=== PATIENT | male | born 1975 | race Caucasian/White ===

== ENCOUNTER 2021-08-20 16:00 | Inpatient (IN) ==
--- NOTE | 2021-08-20 19:45 | XRay Report ---
XR chest 1V portable CLINICAL HISTORY: weak, syncope COMPARISON STUDY: Chest radiograph August 13, 2021. FINDINGS: Lung volumes are normal. There is minimal left basilar opacity. There may be minimal right midlung opacity. There is no pneumothorax or pleural effusion. Cardiac size is normal. Mediastinal co ntours are normal. There is no evidence for pulmonary edema. IMPRESSION: A few subtle bilateral opacities which may reflect an infectious process. Radiographic f ollow-up to ensure resolution is recommended. ACT 112: Negative or not required by law. Electronically signed by: Leroy Magana M.D. 08/20/2021 7:44 PM
[2021-08-20] MEDS ORDERED: SODIUM CHLORIDE 0.9% 1000ML 1,000 ML IV ONE (20:06)
--- NOTE | 2021-08-20 20:09 | Emergency Department Note ---
Impression & Plan 2019 novel coronavirus-infected pneumonia (NCIP), Hypoxia, Acute hypokalemia ED Provider Note NAME: HIRO DURON AGE: 46 SEX: M : 1975 ARRIVES VIA: Walk-In INFORMANT: Patient ED PROVIDER(S): Jamil Fernando DO CHIEF COMPLAINT: Shortness of breath and syncope HPI: Patient is a 46-year-old male Covid positive the week before . He admits to persistent cough and shortness of breath has been worsening. He has not had any fevers for several days. Never lost his taste or smell. Admits to congestion. No belly pain, nausea, vomiting, or diarrhea. He has passed out several times of the past couple days. No other exacerbating or remitting factors. Denies any head or neck pain. ROS: See above HPI for pertinent positives & negatives. A total of 10 systems reviewed and were otherwise negative. PAST MEDICAL HISTORY:See Below PAST SURGICAL HISTORY:See Below FAMILY HISTORY:See Below SOCIAL HISTORY:See Below HOME MEDICATIONS:See Below ALLERGIES:See Below VITALS:See Below PHYSICAL EXAMINATION: GENERAL: Sitting up in bed, alert, ill-appearing, disheveled dyspneic with conversation EYE EXAM: normal conjunctiva. PERRL and EOM's grossly intact. OROPHARYNX: no exudate, no erythema, lips, buccal mucosa, and tongue normal and mucous membranes are moist NECK: supple, no nuchal rigidity, no adenopathy, non-tender LUNGS: Clear to auscultation. Normal chest wall mechanics HEART: no murmurs, S1 normal and S2 normal ABDOMEN: abdomen soft, non-tender, normo-active bowel sounds, no masses, no rebound or guarding. UPPER EXTREMITIES: upper extremities are grossly normal. LOWER EXTREMITIES: No pitting edema. NEURO EXAM: Normal sensorium, cranial nerves II-XII grossly intact, normal speech, no gross weakness of arms, no gross weakness of legs. MEDICAL DECISION MAKING: Patient is a 46-year-old male who presents the ER for shortness of breath cough and congestion with being Covid positive. Patient notes that he is significantly more short of breath now. He is found to be hypoxic at 86% on room air. IV was established blood work was obtained. Labs with mild leukopenia 4000. No significant anemia. BMP with a mild hypokalemia 3. LFTs were slightly up. T bili 1.2. TSH and lipase were normal. He has no belly pain. Chest x-ray with bilateral infiltrates. CT angios shows no PEs. He was given steroids fluids and updated bedside admitted to the hospital for further work-up and he remained on nasal cannula. Triage Nursing notes reviewed. Limited review of prior medical records performed Vital Signs: reviewed and remarkable for hypoxia Differential diagnosis: Differential diagnoses includes but is not limited to pneumonia, bronchitis, COPD/Asthma exacerbation, pneumothorax, pulmonary embolism, congestive heart failure, acute coronary syndrome ER treatment provided: See below Diagnostics interpreted by me: ECG: Sinus rhythm rate [address] wave changes in the inferior leads as well as lateral leads Prolonged QTC at 552 Cardiac Monitoring: An order was placed for continuous cardiac monitoring. The monitor shows a rate of 75 with sinus rhythm. Laboratory studies: As stated above and show below. Imaging studies: CT angios shows bilateral infiltrates Chest x-ray with bilateral infiltrates Consultation(s): Discussed the hospitalist for further evaluation Procedures: none Critical Care: I have personally spent 35 minutes of critical care time in the direct management of this patient. This includes bedside care, interpretation of diagnostic studies, and testing, discussion with consultants, patient, and family members, and other required patient management activities. This 35 min utes is in excess of all separately billable procedures. Past Med/Surg History Medical History Sinusitis Social History Smoking Status: Never smoker Preferred Language: Faroese Feels Safe at Home: Yes Allergies Allergies Allergy/AdvReac Type Severity Reaction Status Date / Time SEASONAL Allergy Intermediate STUFFINESS, Uncoded 08/20/21 20:32 CONGESTION Home Meds Home Medications Medication Instructions Recorded Confirmed albuterol sulfate 90 mcg/actuation 3 inh INHALATION Q6H PRN 08/20/21 08/20/21 aerosol inhaler Previous Rx's Medication Instructions Recorded amoxicillin 875 mg-potassium 1 tab PO BID #20 tab 08/13/21 clavulanate 125 mg tablet (Augmentin) Results & Data (ED) Vital Signs Vital Signs - 24 hr 08/20/21 16:34 08/20/21 20:03 08/20/21 20:04 Temperature 36.8 C Temperature Source Oral Pulse Rate 85 70 Pulse Rate [Radial] 74 Pulse Rate from SpO2 Sensor Respiratory Rate 18 16 16 Respiratory Effort / Characteristics Non-Labored Respiratory Depth Normal Respiratory Pattern Regular Blood Pressure 110/73 Blood Pressure [Left Arm] 122/93 Blood Pressure Mean 85 Blood Pressure Mean [Left Arm] 102 Blood Pressure Position [Left Arm] Lying Pulse Oximetry 91 86 L 94 Oxygen Delivery Method Room Air Room Air Nasal Cannula Oxygen Flow Rate 4 Sepsis Recent Fever Within 48 Hours No Sepsis New/Unexplained Change in Mental Status No Sepsis Action Taken by Nursing No Action Required Oxygen Flow Rate - Titration 4 Pulse Oximetry Post Tiitration 91 08/20/21 21:00 08/20/21 21:35 08/20/21 22:00 Temperature Temperature Source Pulse Rate 79 81 81 Pulse Rate [Radial] Pulse Rate from SpO2 Sensor 80 85 81 Respiratory Rate 17 24 17 Respiratory Effort / Characteristics Respiratory Depth Respiratory Pattern Blood Pressure 131/80 155/86 H 131/84 Blood Pressure [Left Arm] Blood Pressure Mean 97 109 99 Blood Pressure Mean [Left Arm] Blood Pressure Position [Left Arm] Pulse Oximetry 99 94 94 Oxygen Delivery Method Nasal Cannula Nasal Cannula Nasal Cannula Oxygen Flow Rate 4 4 4 Sepsis Recent Fever Within 48 Hours Sepsis New/Unexplained Change in Mental Status Sepsis Action Taken by Nursing Oxygen Flow Rate - Titration Pulse Oximetry Post Tiitration 08/20/21 22:30 08/20/21 23:00 08/20/21 23:30 Temperature Temperature Source Pulse Rate 87 86 89 Pulse Rate [Radial] Pulse Rate from SpO2 Sensor 87 88 90 Respiratory Rate 25 H 21 22 Respiratory Effort / Characteristics Respiratory Depth Respiratory Pattern Blood Pressure 155/78 H 135/79 Blood Pressure [Left Arm] Blood Pressure Mean 103 97 Blood Pressure Mean [Left Arm] Blood Pressure Position [Left Arm] Pulse Oximetry 91 93 94 Oxygen Delivery Method Nasal Cannula Nasal Cannula Nasal Cannula Oxygen Flow Rate 4 4 4 Sepsis Recent Fever Within 48 Hours Sepsis New/Unexplained Change in Mental Status Sepsis Action Taken by Nursing Oxygen Flow Rate - Titration Pulse Oximetry Post Tiitration Laboratory Data Result diagrams: 08/20/21 20:12 08/20/21 20:12 Lab Results 08/20/21 08/20/21 Range/Units 20:12 20:12 WBC 4.56 L (4.8-10.8) K/uL RBC 4.98 (4.7-6.1) M/uL Hgb 17.9 (14.0-18.0) g/dL Hct 49.4 (42-52) % MCV 99.2 (80-100) fL MCH 35.9 H (25-34) pg MCHC 36.2 H (32-36) g/dL RDW Std Deviation 45.4 (36.4-46.3) fL RDW Coeff of Pat 12.4 (11.5-14.5) % Plt Count 180 (130-400) K/uL MPV 9.9 (7.4-10.4) fL Immature Gran % (Auto) 0.2 % Neut % (Auto) 79.2 % Lymph % (Auto) 13.2 % [place] % (Auto) 7.2 % Eos % (Auto) 0.2 % Baso % (Auto) 0.0 % Neut # (Auto) 3.61 (1.4-6.5) K/uL Lymph # (Auto) 0.60 L (1.2-3.4) K/uL [place] # (Auto) 0.33 (0.11-0.59) K/uL Eos # (Auto) 0.01 (0-0.5) K/uL Baso # (Auto) 0.00 (0-0.2) K/uL Immature Gran # (Auto) 0.01 (0.00-0.02) K/uL Sodium 134 L (136-145) mmol/L Potassium 3.0 L (3.5-5.1) mmol/L Chloride 94 L (98-107) mmol/L Carbon Dioxide 31 (21-32) mmol/L Anion Gap 9.0 (3-11) BUN 21 H (7-18) mg/dl Creatinine 1.09 (0.6-1.4) mg/dl Est Cr Clr Drug Dosing 107.0 ml/min Est GFR ( Amer) 95.2 ml/min Est GFR (Non-Af Amer) 82.1 ml/min BUN/Creatinine Ratio 19.4 (10-20) Glucose 104 H (70-99) mg/dl Calcium 8.3 L (8.5-10.1) mg/dl Magnesium 2.6 H (1.8-2.4) mg/dl Total Bilirubin 1.2 H (0.2-1) mg/dl AST 111 H (15-37) U/L ALT 83 H (12-78) Alkaline Phosphatase 86 (45-117) U/L Troponin I < 0.015 (0-0.045) ng/ml Total Protein 7.9 (6.4-8.2) gm/dl Albumin 3.0 L (3.4-5.0) gm/dl Globulin 4.9 H (2.5-4.0) gm/dl Albumin/Globulin Ratio 0.6 L (0.9-2) Lipase 302 (73-393) U/L TSH 1.680 (0.300-4.500) uIu/ml Administered Medications Potassium Chloride 40 meq/ (Sodium Chloride) 1,020 mls @ 100 mls/hr IV .[id number] ONE Stop: 08/21/21 09:11 Last Admin: 08/20/21 23:25 Dose: 100 mls/hr Documented by: [id number] Discontinued Medications Albuterol (Albut/Ipratrop 3mg/0.5mg Neb 3 Ml Vial) 3 ml NEB NOW STA Stop: 08/20/21 22:46 Last Admin: 08/20/21 23:19 Dose: 3 ml Documented by: [id number] Dexamethasone Sodium Phosphate (DexamethasonePf 10 Mg/Ml Vial) 8 mg IV NOW ONE Stop: 08/20/21 22:40 Last Admin: 08/20/21 23:21 Dose: 8 mg Documented by: [id number] Sodium Chloride (Nss 1000ml) 1,000 mls @ 999 mls/hr IV .[id number] ONE Stop: 08/20/21 21:06 Last Infusion: 08/20/21 21:23 Dose: 0 mls/hr Documented by: [id number] Admin: 08/20/21 20:14 Dose: 999 mls/hr Documented by: [id number] Ioversol (Optiray 320 125ml) 120 ml IV ONCE ONE Stop: 08/20/21 21:30 Last Admin: 08/20/21 21:29 Dose: 120 ml Documented by: [id number] Potassium Chloride (Potassium Chloride Crtab 20 Meq Tabcr) 40 meq PO NOW STA Stop: 08/20/21 22:44 Last Admin: 08/20/21 23:21 Dose: 40 meq Documented by: [id number] Imaging Data Radiologist's Impression: Chest X-Ray 08/20/21 18:26 XR chest 1V portable CLINICAL HISTORY: weak, syncope COMPARISON STUDY: Chest radiograph August 13, 2021. FINDINGS: Lung volumes are normal. There is minimal left basilar opacity. There may be minimal right midlung opacity. There is no pneumothorax or pleural effusion. Cardiac size is normal. Mediastinal contours are normal. There is no evidence for pulmonary edema. IMPRESSION: A few subtle bilateral opacities which may reflect an infectious process. Radiographic follow-up to ensure resolution is recommended. ACT 112: Negative or not required by law. Electronically signed by: Leroy Magana M.D. 08/20/2021 7:44 PM Discharge Plan Visit Data Chief Complaint: Syncope Stated Complaint: COVID+, FAINTING, NAUSEA, COUGH, SOB, FEVER ED Provider: Jamil Fernando Discharge Problem: 2019 novel coronavirus-infected pneumonia (NCIP), Hypoxia, Acute hypokalemia Forms Stand Alone Forms: [facility] Prescriptions Prescriptions: No Action albuterol sulfate 90 mcg/actuation HFA aerosol inhaler 3 inh inhalation Q6H PRN (Reason: Shortness Of Breath) RF: 0 amoxicillin-pot clavulanate [Augmentin] 875-125 mg tablet 1 tab PO BID Qty: 20 RF: 0 Referrals Referrals: PCP,NO [Primary Care Provider] -
[2021-08-20 20:29] LABS: Eosinophils # (auto) 0.01 K/uL (0-0.5); Eosinophils % (auto) 0.2 %; Hematocrit (blood only) 49.4 % (42-52); Hemoglobin 17.9 g/dL (14.0-18.0); Immature Granulocytes # (auto) 0.01 K/uL (0.00-0.02); Immature Granulocytes % (auto) 0.2 %; Lymphocytes % (auto) 13.2 %; Mean Corpuscular Hemoglobin 35.9 pg (25-34); Mean Corpuscular Hgb Conc 36.2 g/dL (32-36); Mean Corpuscular Volume 99.2 fL (80-100); Mean Platelet Volume 9.9 fL (7.4-10.4); Monocytes # (auto) 0.33 K/uL (0.11-0.59); Monocytes % (auto) 7.2 %; Neutrophils # (auto) 3.61 K/uL (1.4-6.5); Neutrophils % (auto) 79.2 %; Platelet Count 180 K/uL (130-400); RDW Coefficient of Variation 12.4 % (11.5-14.5); RDW Standard Deviation 45.4 fL (36.4-46.3); Red Blood Count 4.98 M/uL (4.7-6.1); White Blood Count 4.56 K/uL (4.8-10.8)
[2021-08-20 20:48] LABS: Alanine Aminotransferase 83 (12-78); Aspartate Aminotransferase 111 U/L (15-37); BUN Creatinine Ratio 19.4 (10-20); Blood Urea Nitrogen 21 mg/dl (7-18); Calcium 8.3 mg/dl (8.5-10.1); Carbon Dioxide 31 mmol/L (21-32); Chloride 94 mmol/L (98-107); Est GFR (African American) 95.2 ml/min; Est GFR (Non-African American) 82.1 ml/min; Glucose 104 mg/dl (70-99); Lipase 302 U/L (73-393); Magnesium 2.6 mg/dl (1.8-2.4); Sodium 134 mmol/L (136-145)
[2021-08-20 20:58] LABS: Albumin Globulin Ratio 0.6 (0.9-2); Alkaline Phosphatase 86 U/L (45-117); Bilirubin,Total 1.2 mg/dl (0.2-1); Globulin 4.9 gm/dl (2.5-4.0); Total Protein 7.9 gm/dl (6.4-8.2); Troponin I < 0.015 ng/ml (0-0.045)
[2021-08-20] MEDS ORDERED: OPTIRAY 320 125ml IV ONE (21:29)
[2021-08-20] MEDS ORDERED: dexAMETHasone**PF** 10 MG/ML VIAL IV ONE (22:39)
[2021-08-20] MEDS ORDERED: POTASSIUM CHLORIDE CRTAB 20 MEQ TABCR PO STA (22:43)
[2021-08-20] MEDS ORDERED: ALBUT/IPRATROP 3MG/0.5MG NEB 3 ML VIAL NEB STA (22:45)
[2021-08-20] MEDS ORDERED: POTASSIUM CHLORIDE 40 MEQ in SODIUM CHLORIDE 0.9% 1000ML 1,000 ML IV ONE (23:00)
--- NOTE | 2021-08-21 00:18 | History & Physical Report ---
Date of Service August 21, 2021 Assessment & Plan (1) Acute hypoxemic respiratory failure: Plan: Secondary to severe COVID-19 pneumonia Recurrent syncope likely secondary to orthostasis secondary to clinical dehydration Rule out arrhythmia, obstructive cardiac pathology Diarrhea rule out C. difficile, given recent Augmentin course Hypokalemia secondary to diarrhea, poor p.o. intake Abnormal LFTs Medical telemetry Supplemental O2 Decadron and Remdesivir for severe COVID-19 pneumonia. (Patient was counseled regarding potential adverse effects from Remdesivir therapy and provided with patient education sheet. First dose of Remdesivir for now. Check LFTs before subsequent doses administered.) Pulmonary consult if without improvement. Check orthostatic vitals, TTE RE recurrent syncope IVF, replace potassium Stool C. difficile DVT prophylaxis per Lovenox subcu Full code Text document was generated using [employer] voice recognition software. It may contain grammatical or spelling errors. Kindly contact undersigned for clarification of any documentation item in question. History of Present Illness Chief Complaint: Worsening shortness of breath, Covid infection Primary Care Provider: NO PCP History obtained from patient and records. Medical history significant for recurrent sinusitis. 2 weeks ago, patient noted flulike symptoms low-grade fever mild sore throat and sinus congestion. Possible sick contacts at home. Patient has not received COVID-19 vaccination. Patient seen at the ER last week. COVID-19 test was positive. Chest x-ray was normal. O2 sats greater than 95% at the ER. Patient sent home on Augmentin prescription. Worsening shortness of breath at home, chest pain with dry cough symptoms. Poor appetite. Patient had 3 syncopal events at home preceded by lightheadedness on standing up. No tongue biting/urinary incontinence episodes during syncopal events. Diarrhea without unusual abdominal pain complaints. Patient returned to the ER. O2 sats 80s on room air. Patient given Decadron. 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 Allergies Allergy/AdvReac Type Severity Reaction Status Date / Time No Known Drug Allergies Allergy Unknown Unknown Verified 08/21/21 15:00 Home Medications Medication Instructions Recorded Confirmed Type amoxicillin 875 mg-potassium 1 tab PO BID #20 tab 08/13/21 08/20/21 Rx clavulanate 125 mg tablet (Augmentin) albuterol sulfate 90 mcg/actuation 3 inh INHALATION Q6H PRN 08/20/21 08/20/21 History aerosol inhaler Past Med/Surg History Medical History Sinusitis Social History Smoking Status: Never smoker Hx Alcohol Use: Yes Alcohol type: beer and hard liquor Hx Substance Use: No Preferred Language: Bol[place]ian [employer] Required: No Beliefs That Will Affect Care: None Current Living Situation: Spouse and Family Current Living Situation Comment: 2 sons Other Information That Helps Us Care for You: No Feels Safe at Home: Yes Safety Concerns: Feels Safe At This Time Assistive Devices: Glasses and Oxygen - Continuous Review of Systems Review of Systems: As per HPI, all 10 systems reviewed, all other ROS negative Physical Exam Physical Exam: GENERAL: Slightly uncomfortable, pleasant, no respiratory distress SKIN: Normal color, warm HEENT: [place] palpebral conjunctivae, no ptosis, dry buccal mucosa, nasal cannula in place NECK : Supple, no tenderness CHEST : CTA, no tenderness HEART : RRR, no obvious murmurs ABDOMEN: Some distention, nontender EXTREMITIES : No LE swelling/tenderness, no other conspicuous deformities noted NEUROLOGIC : Coherent, no facial asymmetry, no other gross focality Results & Data Results & Data ([facility]) Vital Signs (Past 12 Hours) Vital Signs Temp Pulse Pulse Resp BP BP Pulse Ox 08/20/21 23:30 89 22 94 08/20/21 23:00 86 21 135/79 93 08/20/21 22:30 87 25 H 155/78 H 91 08/20/21 22:00 81 17 131/84 94 08/20/21 21:35 81 24 155/86 H 94 08/20/21 21:00 79 17 131/80 99 08/20/21 20:04 74 16 122/93 94 08/20/21 20:03 70 16 86 L 08/20/21 16:34 36.8 C 85 18 110/73 91 Laboratory Results Laboratory Results WBC 4.56 K/uL (4.8-10.8) L 08/20/21 20:12 RBC 4.98 M/uL (4.7-6.1) 08/20/21 20:12 Hgb 17.9 g/dL (14.0-18.0) 08/20/21 20:12 Hct 49.4 % (42-52) 08/20/21 20:12 MCV 99.2 fL (80-100) 08/20/21 20:12 MCH 35.9 pg (25-34) H 08/20/21 20:12 MCHC 36.2 g/dL (32-36) H 08/20/21 20:12 RDW Std Deviation 45.4 fL (36.4-46.3) 08/20/21 20:12 RDW Coeff of Pat 12.4 % (11.5-14.5) 08/20/21 20:12 Plt Count 180 K/uL (130-400) 08/20/21 20:12 MPV 9.9 fL (7.4-10.4) 08/20/21 20:12 Immature Gran % (Auto) 0.2 % 08/20/21 20:12 Neut % (Auto) 79.2 % 08/20/21 20:12 Lymph % (Auto) 13.2 % 08/20/21 20:12 [place] % (Auto) 7.2 % 08/20/21 20:12 Eos % (Auto) 0.2 % 08/20/21 20:12 Baso % (Auto) 0.0 % 08/20/21 20:12 Neut # (Auto) 3.61 K/uL (1.4-6.5) 08/20/21 20:12 Lymph # (Auto) 0.60 K/uL (1.2-3.4) L 08/20/21 20:12 [place] # (Auto) 0.33 K/uL (0.11-0.59) 08/20/21 20:12 Eos # (Auto) 0.01 K/uL (0-0.5) 08/20/21 20:12 Baso # (Auto) 0.00 K/uL (0-0.2) 08/20/21 20:12 Immature Gran # (Auto) 0.01 K/uL (0.00-0.02) 08/20/21 20:12 Sodium 134 mmol/L (136-145) L 08/20/21 20:12 Potassium 3.0 mmol/L (3.5-5.1) L 08/20/21 20:12 Chloride 94 mmol/L (98-107) L 08/20/21 20:12 Carbon Dioxide 31 mmol/L (21-32) 08/20/21 20:12 Anion Gap 9.0 (3-11) 08/20/21 20:12 BUN 21 mg/dl (7-18) H 08/20/21 20:12 Creatinine 1.09 mg/dl (0.6-1.4) 08/20/21 20:12 Est Cr Clr Drug Dosing 107.0 ml/min 08/20/21 20:12 Est GFR ( Amer) 95.2 ml/min 08/20/21 20:12 Est GFR (Non-Af Amer) 82.1 ml/min 08/20/21 20:12 BUN/Creatinine Ratio 19.4 (10-20) 08/20/21 20:12 Glucose 104 mg/dl (70-99) H 08/20/21 20:12 Calcium 8.3 mg/dl (8.5-10.1) L 08/20/21 20:12 Magnesium 2.6 mg/dl (1.8-2.4) H 08/20/21 20:12 Total Bilirubin 1.2 mg/dl (0.2-1) H 08/20/21 20:12 AST 111 U/L (15-37) H 08/20/21 20:12 ALT 83 (12-78) H 08/20/21 20:12 Alkaline Phosphatase 86 U/L (45-117) 08/20/21 20:12 Troponin I < 0.015 ng/ml (0-0.045) 08/20/21 20:12 Total Protein 7.9 gm/dl (6.4-8.2) 08/20/21 20:12 Albumin 3.0 gm/dl (3.4-5.0) L 08/20/21 20:12 Globulin 4.9 gm/dl (2.5-4.0) H 08/20/21 20:12 Albumin/Globulin Ratio 0.6 (0.9-2) L 08/20/21 20:12 Lipase 302 U/L (73-393) 08/20/21 20:12 TSH 1.680 uIu/ml (0.300-4.500) 08/20/21 20:12 Impressions Chest X-Ray 08/20/21 18:26 XR chest 1V portable CLINICAL HISTORY: weak, syncope COMPARISON STUDY: Chest radiograph August 13, 2021. FINDINGS: Lung volumes are normal. There is minimal left basilar opacity. There may be minimal right midlung opacity. There is no pneumothorax or pleural effusion. Cardiac size is normal. Mediastinal contours are normal. There is no evidence for pulmonary edema. IMPRESSION: A few subtle bilateral opacities which may reflect an infectious process. Radiographic follow-up to ensure resolution is recommended. ACT 112: Negative or not required by law. Electronically signed by: Leroy Magana M.D. 08/20/2021 7:[address] chest initial read: Diffuse bilateral groundglass opacities compatible with multifocal bilateral pneumonitis. Normal cardiac size. Unremarkable mediastinum. Normal aorta. No pulmonaryembolus or aortic dissection. No pleural effusion or pneumothorax. Mild degenerative disease of the spine. Visualized upper abdomen unremarkable. EKG is from interpretation:Rate 70, NSR, normal axis, T wave abnormalities inferior leads
[2021-08-21] MEDS ORDERED: REMDESIVIR 200 MG in SODIUM CHLORIDE 0.9% 210 ML IV STA (00:23)
[2021-08-21] MEDS ORDERED: SODIUM CHLORIDE 0.9% 10ML FLUSH IV SCH (02:50)
[2021-08-21] MEDS ORDERED: XOPENEX/ATROVENT 1.25mg/0.5MG NEB COMBO NEB PRN (02:50)
[2021-08-21] MEDS ORDERED: LEVALBUTEROL 1.25MG/0.5ML NEB INH PRN (02:50)
[2021-08-21] MEDS ORDERED: IPRATROPIUM BROMIDE NEB SOLN 0.02% 2.5 ML VIAL INH PRN (02:50)
[2021-08-21] MEDS ORDERED: PROMETHAZINE HCL 12.5 MG in SODIUM CHLORIDE 0.9% 50 ML IV PRN (02:50)
[2021-08-21] MEDS ORDERED: SODIUM CHLORIDE 0.9% 10ML FLUSH IV ONE (04:00)
[2021-08-21] MEDS ORDERED: dexAMETHasone 6 MG in SYRINGE 0 ML IV ONE (04:40)
[2021-08-21 05:11] LABS: Basophils # (auto) 0.01 K/uL (0-0.2); Basophils % (auto) 0.4 %; Hematocrit (blood only) 43.1 % (42-52); Hemoglobin 15.3 g/dL (14.0-18.0); Immature Granulocytes # (auto) 0.01 K/uL (0.00-0.02); Immature Granulocytes % (auto) 0.4 %; Lymphocytes # (auto) 0.25 K/uL (1.2-3.4); Lymphocytes % (auto) 10.6 %; Mean Corpuscular Hemoglobin 35.4 pg (25-34); Mean Corpuscular Hgb Conc 35.5 g/dL (32-36); Mean Corpuscular Volume 99.8 fL (80-100); Mean Platelet Volume 9.7 fL (7.4-10.4); Monocytes # (auto) 0.09 K/uL (0.11-0.59); Monocytes % (auto) 3.8 %; Neutrophils # (auto) 1.99 K/uL (1.4-6.5); Neutrophils % (auto) 84.8 %; Platelet Count 152 K/uL (130-400); RDW Coefficient of Variation 12.5 % (11.5-14.5); RDW Standard Deviation 45.8 fL (36.4-46.3); Red Blood Count 4.32 M/uL (4.7-6.1); White Blood Count 2.35 K/uL (4.8-10.8)
[2021-08-21 05:15] LABS: Base Excess ABG 1.4 mEq/L (-9-1.8); HCO3 ABG 25 mmol/L (19-24); Oxygen Saturation ABG 89.4 % (90-95); PCO2 ABG 36 mmHg (35-46); PO2 ABG 56 mmHg (80-95); pH ABG 7.46 (7.35-7.45)
[2021-08-21 05:20] LABS: Allen Test Pos (Pos)
[2021-08-21 05:44] LABS: Albumin Level 2.3 gm/dl (3.4-5.0); BUN Creatinine Ratio 21.8 (10-20); Bilirubin,Total 0.8 mg/dl (0.2-1); C Reactive Protein 5.5 mg/dl (0-0.29); Calcium 7.8 mg/dl (8.5-10.1); Creatinine Clr Calc Pharmacy 155.6 ml/min; Est GFR (African American) 129.3 ml/min; Est GFR (Non-African American) 111.6 ml/min; Total Protein 6.3 gm/dl (6.4-8.2)
--- NOTE | 2021-08-21 07:34 | CT Scan Report ---
CT angio chest PE protocol CLINICAL HISTORY: Shortness of breath. Covid positive. Evaluate for pulmonary embolus COMPARISON STUDY: Portable chest from 08/21/2021 CT DOSE: 464.55 mGy.cm TECHNIQUE: CT Angio of the chest was performed.followed by image post processing with coronal, and s agittal MIP reformats. Contrast Volume: Optiray 320, 120 ml FINDINGS: Vasculature: There is homogeneous perfusion of the pulmonary vasculature bilaterally. No intraluminal filling defects or evidence for pulmonary embolus is seen. Airway: The airway is clear. No endobronchial lesion is identified. Lungs: Extensive groundglass opacities are present throughout both lungs characteristic of a viral ty pe pneumonitis and Covid 19 pneumonia. The lungs are otherwise clear of confluent alveolar opacities, air bronchograms or pulmonary nodules. Pleura: There is no evidence for pleural effusion. There is no evidence for pneumothorax. Mediastinum: There is no evidence for pathologic adenopathy. The heart size is within normal limits. The thoracic aorta is within normal limits. There is no evidence for pericardial effusion. Upper abdomen:The adrenal glands are normal bilaterally. Osseous structures: There is no acute osseous pathology. Impression: 1. No CTA evidence for pulmonary embolus. 2. Extensive groundglass opacities are present throughout both lungs characteristic of a viral type p neumonitis and Covid 19 pneumonia. ACT 112: Negative or not required by law. Electronically signed by: Jose R Banks M.D. 08/21/2021 7:32 AM
--- NOTE | 2021-08-21 07:45 | XRay Report ---
XR chest 1V portable CLINICAL HISTORY: low o2 COMPARISON STUDY: Chest radiograph and chest CT August 20, 2021. FINDINGS: Lung volumes are normal. There is no pneumothorax or pleural effusion. Multifocal bilateral airspace opacities have progressed since chest radiograph of August 20, 2021. Cardiac size is fern l. Mediastinal contours are unremarkable. IMPRESSION: Progression of bilateral airspace opacities consistent with viral pneumonia. ACT 112: Negative or not required by law. Electronically signed by: Leroy Magana M.D. 08/21/2021 7:43 AM
[2021-08-21 07:51] LABS: Appearance Urine Clear (Clear); Bilirubin Urine Negative (Negative); Blood Urine Negative (Negative); Color Urine Dark Yellow; Glucose Urine UA Negative (Negative); Ketones Urine Negative (Negative); Leukocyte Esterase Urine Negative (Negative); Nitrite Urine Negative (Negative); Protein Urine Negative (Negative); Specific Gravity Urine 1.026 (1.000-1.030); Urobilinogen Urine Positive (Negative); pH Urine 6.5 (4.5-7.5)
[2021-08-21 08:22] LABS: Potassium 3.9 mmol/L (3.5-5.1)
[2021-08-21] MEDS ORDERED: dexAMETHasone 6 MG in SYRINGE 0 ML IV SCH (09:00)
[2021-08-21] MEDS: ENOXAPARIN INJ 40 MG/0.4 ML SYR SQ SCH (09:28)
--- NOTE | 2021-08-21 14:55 | Hospitalist Progress Note ---
Date of Service August 21, 2021 Assessment & Plan (1) Acute hypoxemic respiratory failure: Plan: #. COVID pneumonia #. Acute hypoxic respiratory failure -secondary to above #. Slightly abnormal LFT -continue to monitor very closely for the duration of remdesivir. Vaccine status/month: Not vaccinated; signs and symptoms: Since 08/09; tested positive for Covid: 08/13 Admitting pro-Jessee: add test to am sample Admitting imaging: CTA chest suggestive of viral pneumonia, no evidence of PE. Clinically patient doing same as yesterday per him, requiring high oxygen, no chest pain or subjective shortness of breath but gets SOB with minimal exertion Encourage every hour incentive spirometer/flutter valve/self proning as able Tessalon Perles and Mucinex for cough BNP: Add to a.m. sample; strict I's and O's; as needed IV Lasix; monitor BMP Admitting echo: EF 60 to 65% with normal LV wall motion and LV function. Monitor LFT daily when on remdesivir; sliding scale and glycemic pharmacy if needed when on steroid. Continue with dexamethasone 08/21 and remdesivir 08/21 -closely monitor LFT #. Diarrhea #. Electrolyte abnormalities -monitor as needed and replete as appropriate. Patient reports not having diarrhea since yesterday morning Has had diarrhea prior to that Likely secondary to recent antibiotic use versus from Covid versus other etiology C. difficile has been sent, but patient has not had any bowel movement lately. Continue to monitor. #. Recurrent syncope Likely secondary to orthostasis secondary to clinical dehydration versus hypoxic episodes from Covid Continue telemetry, admitting echo donesee above Get orthostatic vitals, monitor electrolytes. Continue telemetry. DVT prophylaxis per Lovenox subcu Full code Text document was generated using [employer] voice recognition software. It may contain grammatical or spelling errors. Kindly contact undersigned for clarification of any documentation item in qu estion. Admission and Anticipated Discharge Date Admission Date: August 21, 2021 Subjective Patient was lying in bed, on 45 L high flow nasal cannula, NAD, coughingwet in nature but with no mucus production. Patient denies any new acute events overnight. Patient feels same same as yesterday, reports no diarrhea since yesterday morning, coughing occasionally, no chest pain or palpitation, no acute changes in bladder habit, no belly pain, no other review of symptoms. Physical Exam Physical Exam: GENERAL: Alert and oriented x3. NAD, on 45 L HFNC HEENT: No pallor, no icterus. Pupils equal, round and reactive to light. Oral mucosa moist. NECK: No JVD, no neck masses. HEART: S1 and S2 heard. Regular rate and rhythm. No murmur, no gallop. RESPIRATORY SYSTEM: Normal AP diameter. No accessory muscle use. No wheezing, b/l occasional crackles. Wet cough ABDOMEN: Soft, bowel sounds present, nontender, no distention. CENTRAL NERVOUS SYSTEM: No facial droop. Speech is clear. Obeys simple commands. Moves extremities. EXTREMITIES: No edema, no erythema seen. Results & Data Results & Data ([facility]) Vital Signs (Past 12 Hours) Vital Signs Temp Pulse Pulse Resp BP Pulse Ox Pulse Ox 08/21/21 12:30 58 L 12 113/62 91 08/21/21 12:00 54 L 22 98 08/21/21 11:30 56 L 16 93 08/21/21 11:12 66 22 91 08/21/21 11:00 63 17 08/21/21 10:30 58 L 24 119/69 97 08/21/21 09:30 73 25 H 126/71 93 08/21/21 09:00 63 26 H 118/71 97 08/21/21 08:30 91 H 16 116/71 94 08/21/21 08:00 81 19 135/78 92 08/21/21 07:36 37 C 74 15 113/78 99 08/21/21 07:23 67 16 92 08/21/21 07:00 58 L 17 138/84 98 08/21/21 06:30 72 20 122/65 98 08/21/21 06:00 72 12 129/70 99 08/21/21 05:44 73 20 93 08/21/21 05:30 69 12 113/69 97 08/21/21 05:16 90 08/21/21 05:00 69 23 114/70 88 L 08/21/21 04:30 73 21 120/64 86 L 08/21/21 04:00 80 16 91 08/21/21 03:51 77 24 92 08/21/21 03:00 70 23 111/72 95
--- NOTE | 2021-08-21 15:53 | Electrocardiogram Report ---
Test Reason : Blood Pressure : / mmHG Vent. Rate : 071 BPM Atrial Rate : 071 BPM P-R Int : 132 ms QRS Dur : 086 ms QT Int : 508 ms P-R-T Axes : 052 031 055 degrees QTc Int : 552 ms Normal sinus rhythm Prolonged QT Abnormal ECG No previous ECGs available Confirmed by Mike Stone ([id number]) on 08/21/2021 3:53:22 PM Referred By: REFERRED SELF Confirmed By:Mike Stone
[2021-08-21] MEDS: ACETAMINOPHEN 325 MG TAB PO PRN (21:50)
[2021-08-21] MEDS: BENZONATATE 100 MG CAPSULE PO SCH (21:51)
[2021-08-21] MEDS: guaiFENesin 600 MG TABCR PO SCH (21:51)
[2021-08-22 06:37] LABS: Hematocrit (blood only) 42.3 % (42-52); Hemoglobin 15.1 g/dL (14.0-18.0); Mean Corpuscular Hemoglobin 36.3 pg (25-34); Mean Corpuscular Hgb Conc 35.7 g/dL (32-36); Mean Corpuscular Volume 101.7 fL (80-100); Mean Platelet Volume 9.7 fL (7.4-10.4); Platelet Count 181 K/uL (130-400); RDW Coefficient of Variation 12.6 % (11.5-14.5); RDW Standard Deviation 46.7 fL (36.4-46.3); Red Blood Count 4.16 M/uL (4.7-6.1); White Blood Count 8.17 K/uL (4.8-10.8)
[2021-08-22 07:13] LABS: Albumin Level 2.2 gm/dl (3.4-5.0); Calcium 8.3 mg/dl (8.5-10.1); Creatinine Clr Calc Pharmacy 142.2 ml/min; Est GFR (African American) 124.6 ml/min; Est GFR (Non-African American) 107.5 ml/min; Magnesium 2.8 mg/dl (1.8-2.4); Potassium 3.6 mmol/L (3.5-5.1)
[2021-08-22 07:16] LABS: Albumin Globulin Ratio 0.6 (0.9-2); Bilirubin,Total 0.8 mg/dl (0.2-1); Globulin 3.9 gm/dl (2.5-4.0); Phosphorus 3.5 mg/dl (2.5-4.9); Total Protein 6.1 gm/dl (6.4-8.2)
[2021-08-22] MEDS: BENZONATATE 100 MG CAPSULE PO SCH ×3 (09:45→20:38)
[2021-08-22] MEDS: guaiFENesin 600 MG TABCR PO SCH ×2 (09:45→20:38)
[2021-08-22] MEDS: ENOXAPARIN INJ 40 MG/0.4 ML SYR SQ SCH (09:45)
[2021-08-22] MEDS: dexAMETHasone 6 MG in SYRINGE 0 ML IV SCH (09:45)
[2021-08-22] MEDS: REMDESIVIR 100 MG in SODIUM CHLORIDE 0.9% 230 ML IV SCH (11:45)
[2021-08-22] MEDS: SODIUM CHLORIDE 0.9% 10ML FLUSH IV SCH (12:56)
[2021-08-22] MEDS ORDERED: POTASSIUM CHLORIDE CRTAB 20 MEQ TABCR PO STA (16:13)
[2021-08-22] MEDS ORDERED: FUROSEMIDE INJ 20 MG/2 ML VIAL IV ONE (16:13)
--- NOTE | 2021-08-22 16:19 | Hospitalist Progress Note ---
Date of Service August 22, 2021 Assessment & Plan (1) Acute hypoxemic respiratory failure: (2) 2019 novel coronavirus-infected pneumonia (NCIP): Plan: #. COVID pneumonia #. Acute hypoxic respiratory failure-secondary to above #. Slightly abnormal LFT-continue to monitor very closely for the duration of remdesivir. Vaccine status/month: Not vaccinated; signs and symptoms: Since 08/09; tested positive for Covid: 08/13 Admitting pro-Jessee: 0.38 Admitting imaging: CTA chest suggestive of viral pneumonia, no evidence of PE. Clinically patient doing same as yesterday per him, requiring high oxygen, no chest pain or subjective shortness of breath but gets SOB with minimal exertion Encourage every hour incentive spirometer/flutter valve/self proning as able Tessalon Perles and Mucinex for cough BNP: 53; strict I's and O's; as needed IV Lasix; monitor BMP. A dose of lasix with KCL supplement today. Admitting echo: EF 60 to 65% with normal LV wall motion and LV function. Monitor LFT daily when on remdesivir; sliding scale and glycemic pharmacy if needed when on steroid. Continue with dexamethasone 08/21 and remdesivir 08/21 -closely monitor LFT #. Diarrhea #. Electrolyte abnormalities -monitor as needed and replete as appropriate. 08/21 C. diff negative ( recent antibiotic as OP) Patient reports BM still diarrheal, no blood noted. Likely secondary Covid versus other etiology Continue to monitor. #. Recurrent syncope Likely secondary to orthostasis secondary to clinical dehydration versus hypoxic episodes from Covid Continue telemetry, admitting echo donesee above; Ortho vitals negative on 08/21. Monitor electrolytes. Continue telemetry. DVT prophylaxis per Lovenox subcu Full code Text document was generated using [employer] voice recognition software. It may contain grammatical or spelling errors. Kindly contact undersigned for clarification of any documentation item in question. Admission and Anticipated Discharge Date Admission Date: August 21, 2021 Subjective Patient was lying in bed, on 40 L high flow nasal cannula, NAD, coughingwet in nature but with no mucus production. Patient denies any new acute events overnight. Patient feels same same as yesterday, reports diarrheal BM, coughing occasionally, no chest pain or palpitation, no acute changes in bladder habit, no belly pain, no other review of symptoms. Physical Exam Physical Exam: GENERAL: Alert and oriented x3. NAD, on 40 L HFNC HEENT: No pallor, no icterus. Pupils equal, round and reactive to light. Oral mucosa moist. NECK: No JVD, no neck masses. HEART: S1 and S2 heard. Regular rate and rhythm. No murmur, no gallop. RESPIRATORY SYSTEM: Normal AP diameter. No accessory muscle use. No wheezing, b/l crackles. Wet cough ABDOMEN: Soft, bowel sounds present, nontender, no distention. CENTRAL NERVOUS SYSTEM: No facial droop. Speech is clear. Obeys simple commands. Moves extremities. EXTREMITIES: No edema, no erythema seen. Results & Data Results & Data ([facility]) Vital Signs (Past 12 Hours) Vital Signs Temp Pulse Pulse Resp BP Pulse Ox 08/22/21 15:27 36.8 C 53 L 22 102/66 96 08/22/21 14:09 77 18 98 08/22/21 11:53 36.5 C 73 20 102/68 95 08/22/21 11:12 70 22 89 L 08/22/21 07:55 36.9 C 59 L 18 110/70 100 08/22/21 07:40 60 18 95 08/22/21 07:29 56 L
[2021-08-23] MEDS: ACETAMINOPHEN 325 MG TAB PO PRN (00:22)
[2021-08-23 08:25] LABS: Albumin Level 2.2 gm/dl (3.4-5.0); BUN Creatinine Ratio 32.4 (10-20); Creatinine Clr Calc Pharmacy 137.8 ml/min; Est GFR (African American) 122.8 ml/min; Potassium 3.9 mmol/L (3.5-5.1)
[2021-08-23 08:28] LABS: Albumin Globulin Ratio 0.6 (0.9-2); Bilirubin,Total 1.1 mg/dl (0.2-1); Globulin 3.9 gm/dl (2.5-4.0); Total Protein 6.1 gm/dl (6.4-8.2)
[2021-08-23] MEDS: BENZONATATE 100 MG CAPSULE PO SCH ×3 (08:45→20:34)
[2021-08-23] MEDS: guaiFENesin 600 MG TABCR PO SCH ×2 (08:46→20:32)
[2021-08-23] MEDS: dexAMETHasone 6 MG in SYRINGE 0 ML IV SCH (08:46)
[2021-08-23] MEDS: ENOXAPARIN INJ 40 MG/0.4 ML SYR SQ SCH (08:46)
[2021-08-23] MEDS: REMDESIVIR 100 MG in SODIUM CHLORIDE 0.9% 230 ML IV SCH (12:10)
[2021-08-23] MEDS: SODIUM CHLORIDE 0.9% 10ML FLUSH IV SCH (12:11)
--- NOTE | 2021-08-23 18:58 | Hospitalist Progress Note ---
Date of Service August 23, 2021 Assessment & Plan (1) Acute hypoxemic respiratory failure: (2) 2019 novel coronavirus-infected pneumonia (NCIP): Plan: #. COVID pneumonia #. Acute hypoxic respiratory failure-secondary to above #. Slightly abnormal LFT-continue to monitor very closely for the duration of remdesivir. Vaccine status/month: Not vaccinated; signs and symptoms: Since 08/09; tested positive for Covid: 08/13 Admitting pro-Jessee: 0.38 Admitting imaging: CTA chest suggestive of viral pneumonia, no evidence of PE. Clinically patient doing same as yesterday per him, requiring high oxygen, no chest pain or subjective shortness of breath but gets SOB with minimal exertion Encourage every hour incentive spirometer/flutter valve/self proning as able Tessalon Perles and Mucinex for cough BNP: 53; strict I's and O's; as needed IV Lasix; monitor BMP. A dose of lasix tomorrow. Admitting echo: EF 60 to 65% with normal LV wall motion and LV function. Monitor LFT daily when on remdesivir; sliding scale and glycemic pharmacy if needed when on steroid. Continue with dexamethasone 08/21 and remdesivir 08/21 -closely monitor LFT #. Diarrhea #. Electrolyte abnormalities -monitor as needed and replete as appropriate. 08/21 C. diff negative ( recent antibiotic as OP) Patient reports improving diarrheal movements. Likely secondary Covid versus other etiology Continue to monitor. #. Recurrent syncope Likely secondary to orthostasis secondary to clinical dehydration versus hypoxic episodes from Covid Continue telemetry, admitting echo donesee above; Ortho vitals negative on 08/21. Monitor electrolytes. Continue telemetry. DVT prophylaxis per Lovenox subcu Full code Text document was generated using [employer] voice recognition software. It may contain grammatical or spelling errors. Kindly contact undersigned for clarification of any documentation item in question. Admission and Anticipated Discharge Date Admission Date: August 21, 2021 Subjective Patient was lying in bed, on 35 L high flow nasal cannula, NAD, reports improving cough and improving diarrhea. Still reports shortness of breath with movement. Patient feels slightly better, no chest pain or palpitation, no acute changes in bladder habit, no belly pain, no other review of symptoms. Physical Exam Physical Exam: GENERAL: Alert and oriented x3. NAD, on 35 L HFNC HEENT: No pallor, no icterus. Pupils equal, round and reactive to light. Oral mucosa moist. NECK: No JVD, no neck masses. HEART: S1 and S2 heard. Regular rate and rhythm. No murmur, no gallop. RESPIRATORY SYSTEM: Normal AP diameter. No accessory muscle use. No wheezing, b/l crackles. Wet cough. Decreased breath sounds. ABDOMEN: Soft, bowel sounds present, nontender, no distention. CENTRAL NERVOUS SYSTEM: No facial droop. Speech is clear. Obeys simple commands. Moves extremities. EXTREMITIES: No edema, no erythema seen. Results & Data Results & Data ([facility]) Vital Signs (Past 12 Hours) Vital Signs Temp Pulse Pulse Resp BP Pulse Ox 08/23/21 15:49 36.6 C 53 L 18 97/58 L 95 08/23/21 15:32 52 L 20 94 08/23/21 15:00 50 L 08/23/21 11:52 36.4 C L 81 24 95/56 L 94 08/23/21 11:15 63 16 94 08/23/21 07:52 36.8 C 50 L 20 103/69 90 08/23/21 07:51 47 L 08/23/21 07:46 51 L 18 98
[2021-08-24] MEDS ORDERED: FUROSEMIDE 40 MG/4 ML VIAL IV ONE (07:00)
[2021-08-24 07:35] LABS: Albumin Level 2.2 gm/dl (3.4-5.0); BUN Creatinine Ratio 28.4 (10-20); Calcium 8.1 mg/dl (8.5-10.1); Creatinine Clr Calc Pharmacy 134.8 ml/min; Est GFR (African American) 122.2 ml/min; Est GFR (Non-African American) 105.5 ml/min; Potassium 4.1 mmol/L (3.5-5.1)
[2021-08-24 07:37] LABS: Albumin Globulin Ratio 0.6 (0.9-2); Bilirubin,Total 1.2 mg/dl (0.2-1); Globulin 3.9 gm/dl (2.5-4.0); Total Protein 6.1 gm/dl (6.4-8.2)
[2021-08-24] MEDS: dexAMETHasone 6 MG in SYRINGE 0 ML IV SCH (10:07)
[2021-08-24] MEDS: ENOXAPARIN INJ 40 MG/0.4 ML SYR SQ SCH (10:07)
[2021-08-24] MEDS: BENZONATATE 100 MG CAPSULE PO SCH ×3 (10:08→21:35)
[2021-08-24] MEDS: guaiFENesin 600 MG TABCR PO SCH ×2 (10:08→21:35)
--- NOTE | 2021-08-24 10:55 | Hospitalist Progress Note ---
Date of Service August 24, 2021 Assessment & Plan (1) Acute hypoxemic respiratory failure: (2) 2019 novel coronavirus-infected pneumonia (NCIP): Plan: #. COVID pneumonia #. Acute hypoxic respiratory failure-secondary to above #. Slightly abnormal LFT-continue to monitor very closely for the duration of remdesivir. Vaccine status/month: Not vaccinated; signs and symptoms: Since 08/09; tested positive for Covid: 08/13 Admitting pro-Jessee: 0.38, f/u procal 08/24 negative Admitting imaging: CTA chest suggestive of viral pneumonia, no evidence of PE. Clinically patient doing same as yesterday per him, requiring high oxygen, no chest pain or subjective shortness of breath but gets SOB with minimal exertion Encourage every hour incentive spirometer/flutter valve/self proning as able Tessalon Perles and Mucinex for cough BNP: 53; strict I's and O's; as needed IV Lasix; monitor BMP. Admitting echo: EF 60 to 65% with normal LV wall motion and LV function. Monitor LFT daily when on remdesivir; sliding scale and glycemic pharmacy if needed when on steroid. Continue with dexamethasone 08/21 and remdesivir 08/21 -closely monitor LFT #. Diarrhea #. Electrolyte abnormalities -monitor as needed and replete as appropriate. 08/21 C. diff negative ( recent antibiotic as OP) Patient reports improving diarrheal movements. Likely secondary Covid versus other etiology Continue to monitor. #. Recurrent syncope Likely secondary to orthostasis secondary to clinical dehydration versus hypoxic episodes from Covid Continue telemetry, admitting echo donesee above; Ortho vitals negative on 08/21. Monitor electrolytes. Continue telemetry. DVT prophylaxis per Lovenox subcu Full code Text document was generated using [employer] voice recognition software. It may contain grammatical or spelling errors. Kindly contact undersigned for clarification of any documentation item in que stion. Admission and Anticipated Discharge Date Admission Date: August 21, 2021 Subjective Patient was sitting up in bed, on 35 L high flow nasal cannula, NAD, reports improving cough and improving diarrhea. Still reports shortness of breath with minimal exertion requiring 60 L overnight and dropping to 74% on 35L in AM. will place roy, call respiratory, will initiate CPAP. Patient feels ok, no chest pain or palpitation, no acute changes in bladder habit, no belly pain, no other review of symptoms. Physical Exam Physical Exam: GENERAL: Alert and oriented x3. NAD, on 35 L HFNC HEENT: No pallor, no icterus. Pupils equal, round and reactive to light. Oral mucosa moist. NECK: No JVD, no neck masses. HEART: S1 and S2 heard. Regular rate and rhythm. No murmur, no gallop. RESPIRATORY SYSTEM: Normal AP diameter. No accessory muscle use. No wheezing, b/l crackles. Wet cough. Decreased breath sounds. ABDOMEN: Soft, bowel sounds present, nontender, no distention. CENTRAL NERVOUS SYSTEM: No facial droop. Speech is clear. Obeys simple commands. Moves extremities. EXTREMITIES: No edema, no erythema seen. Results & Data Results & Data ([facility]) Vital Signs (Past 12 Hours) Vital Signs Temp Pulse Pulse Resp BP BP Pulse Ox 08/24/21 08:13 36.5 C 61 24 102/63 90 08/24/21 08:10 65 20 91 08/24/21 04:06 36.6 C 53 L 18 106/52 L 95 08/24/21 03:00 20 94 08/23/21 23:32 61 08/23/21 23:14 36.6 C 55 L 18 119/78 90
[2021-08-24 12:03] LABS: D Dimer 970 ug/L FEU (0-500)
[2021-08-24] MEDS: REMDESIVIR 100 MG in SODIUM CHLORIDE 0.9% 230 ML IV SCH (13:12)
[2021-08-24] MEDS: SODIUM CHLORIDE 0.9% 10ML FLUSH IV SCH (13:14)
[2021-08-25 06:53] LABS: Albumin Level 2.3 gm/dl (3.4-5.0); BUN Creatinine Ratio 32.8 (10-20); Calcium 8.3 mg/dl (8.5-10.1); Creatinine Clr Calc Pharmacy 125.3 ml/min; Est GFR (African American) 122.8 ml/min; Potassium 4.1 mmol/L (3.5-5.1)
[2021-08-25 06:55] LABS: Albumin Globulin Ratio 0.6 (0.9-2); Bilirubin,Total 1.2 mg/dl (0.2-1); Globulin 3.8 gm/dl (2.5-4.0); Total Protein 6.1 gm/dl (6.4-8.2)
[2021-08-25] MEDS: dexAMETHasone 6 MG in SYRINGE 0 ML IV SCH (08:13)
[2021-08-25] MEDS: ENOXAPARIN INJ 40 MG/0.4 ML SYR SQ SCH (10:53)
[2021-08-25] MEDS: guaiFENesin 600 MG TABCR PO SCH ×2 (10:53→20:09)
[2021-08-25] MEDS: BENZONATATE 100 MG CAPSULE PO SCH ×3 (10:53→20:09)
[2021-08-25] MEDS: REMDESIVIR 100 MG in SODIUM CHLORIDE 0.9% 230 ML IV SCH (12:09)
[2021-08-25] MEDS: SODIUM CHLORIDE 0.9% 10ML FLUSH IV SCH (12:09)
--- NOTE | 2021-08-25 16:50 | Hospitalist Progress Note ---
Date of Service August 25, 2021 Assessment & Plan (1) Acute hypoxemic respiratory failure: (2) 2019 novel coronavirus-infected pneumonia (NCIP): Plan: #. COVID pneumonia #. Acute hypoxic respiratory failure-secondary to above #. Slightly abnormal LFT-continue to monitor very closely for the duration of remdesivir. Vaccine status/month: Not vaccinated; signs and symptoms: Since 08/09; tested positive for Covid: 08/13 Admitting pro-Jessee: 0.38, f/u procal 08/24 negative Admitting imaging: CTA chest suggestive of viral pneumonia, no evidence of PE. Encourage every hour incentive spirometer/flutter valve/self proning as able Tessalon Perles and Mucinex for cough BNP: 53; strict I's and O's; as needed IV Lasix; monitor BMP. Admitting echo: EF 60 to 65% with normal LV wall motion and LV function. Monitor LFT daily when on remdesivir; sliding scale and glycemic pharmacy if needed when on steroid. Continue with dexamethasone 08/21 and remdesivir 08/21 -closely monitor LFT Clinically a little better but still requiring high flow oxygen at 40 L with 35% FiO2 to maintain saturation Has a total of negative balance about 4000 mL and will not give any more Lasix today Continue with current management #. Diarrhea #. Electrolyte abnormalities -monitor as needed and replete as appropriate. 08/21 C. diff negative ( recent antibiotic as OP) Patient reports improving diarrheal movements. Likely secondary Covid versus other etiology Continue to monitor. Denies any more diarrhea #. Recurrent syncope Likely secondary to orthostasis secondary to clinical dehydration versus hypoxic episodes from Covid Continue telemetry, admitting echo donesee above; Ortho vitals negative on 08/21. Monitor electrolytes. Continue telemetry We will get PT and OT evaluation when appropriate. DVT prophylaxis per Lovenox subcu Full code Admission and Anticipated Discharge Date Admission Date: August 21, 2021 Subjective 08/25/2021 The patient was seen and examined in telemetry unit and in the Covid room He has been feeling a little better but still requiring about 40 L of oxygen at 35% to maintain saturation Has cough without any pain Review of Systems Review of Systems: All systems reviewed and are unremarkable except as noted below Respiratory: Has shortness of breath and cough Physical Exam Physical Exam: Lying in bed comfortably Constitutional: + ill appearing and average body habitus Eyes: PERRL, conjunctivae normal, anicteric sclerae ENMT: external ear and nose normal, oropharynx normal Respiratory: + respiratory distress (Mild to moderate respiratory distress at rest) Auscultation: + diminished lung sounds and + crackles (At the bases) Cardiovascular: Rate/Rhythm: regular rate and regular rhythm; not tachycardic Heart Sounds: normal S1 and normal S2; no murmur Extremities: no edema Gastrointestinal (Abdomen): Inspection/Auscultation: normal bowel sounds; abdomen not distended Percussion/Palpation: abdomen soft; abdomen nontender Musculoskeletal: No acute arthritis in any joint Neurologic: Alert, awake and oriented x3 Lymphatic: no cervical or axillary lymphadenopathy Results & Data Results & Data ([facility]) Vital Signs (Past 12 Hours) Vital Signs Temp Pulse Pulse Pulse Resp BP Pulse Ox 08/25/21 15:59 36.8 C 50 L 18 116/65 95 08/25/21 14:20 70 18 89 L 08/25/21 12:05 36.8 C 77 18 118/68 87 L 08/25/21 10:56 76 26 H 90 08/25/21 07:24 36.6 C 47 L 20 96/47 L 92 08/25/21 07:14 49 L 08/25/21 06:22 77 24 91 Laboratory Results [facility] 08/25/21 05:58 Sodium 137 Potassium 4.1 Chloride 106 Carbon Dioxide 25 BUN 28 H Creatinine 0.85 Glucose 99 Calcium 8.3 L Liver Function 08/25/21 Range/Units 05:58 Total Bilirubin 1.2 H (0.2-1) mg/dl AST 34 (15-37) U/L ALT 43 (12-78) Alkaline Phosphatase 61 (45-117) U/L Albumin 2.3 L (3.4-5.0) gm/dl Medications Administered Current Inpatient Medications Acetaminophen (Acetaminophen 325 Mg Tab) 325 mg PO Q6H PRN PRN Reason: Mild Pain Stop: 09/20/21 02:49 Last Admin: 08/23/21 00:22 Dose: 325 mg Documented by: Benzonatate (Benzonatate 100 Mg Capsule) 100 mg PO TID MILA Stop: 09/20/21 20:59 Last Admin: 08/25/21 13:13 Dose: 100 mg Documented by: Enoxaparin Sodium (Enoxaparin Inj 40 Mg/0.4 Ml Syr) 40 mg SQ QAM [facility] Stop: 09/20/21 08:59 Last Admin: 08/25/21 10:53 Dose: 40 mg Documented by: Guaifenesin (Guaifenesin 600 Mg Tabcr) 1,200 mg PO Q12 [facility] Stop: 09/20/21 20:59 Last Admin: 08/25/21 10:53 Dose: 1,200 mg Documented by: Promethazine HCl 12.5 mg/ (Sodium Chloride) 50.5 mls @ 202 mls/hr IV Q6H PRN PRN Reason: Nausea And Vomiting Stop: 09/20/21 02:49 Dexamethasone 6 mg/ Syringe 1.5 mls @ 1 mls/min IV DAILY [facility] Stop: 09/21/21 08:59 Last Admin: 08/25/21 08:13 Dose: 1 mls/min Documented by: Ipratropium [place] (Ipratropium [place] Neb Soln 0.02% 2.5 Ml Vial) 0.5 mg INH Q4R PRN PRN Reason: Shortness Of Breath Or Wheezing Stop: 09/20/21 02:49 Last Admin: 08/21/21 03:51 Dose: 0.5 mg Documented by: Levalbuterol HCl (Levalbuterol 1.25mg/0.5ml Neb) 1.25 mg INH Q4R PRN PRN Reason: Shortness Of Breath Or Wheezing Stop: 09/20/21 02:49 Last Admin: 08/21/21 03:50 Dose: 1.25 mg Documented by:
[2021-08-25] MEDS: hydrOXYzine HCl 25 MG TAB PO PRN (22:14)
[2021-08-26] MEDS: dexAMETHasone 6 MG in SYRINGE 0 ML IV SCH (08:34)
[2021-08-26] MEDS: BENZONATATE 100 MG CAPSULE PO SCH ×3 (08:34→19:54)
[2021-08-26] MEDS: guaiFENesin 600 MG TABCR PO SCH ×2 (08:35→19:43)
[2021-08-26] MEDS: ENOXAPARIN INJ 40 MG/0.4 ML SYR SQ SCH (08:35)
--- NOTE | 2021-08-26 15:02 | Hospitalist Progress Note ---
Date of Service August 26, 2021 Assessment & Plan (1) Acute hypoxemic respiratory failure: (2) 2019 novel coronavirus-infected pneumonia (NCIP): Plan: #. COVID pneumonia #. Acute hypoxic respiratory failure-secondary to above #. Slightly abnormal LFT-continue to monitor very closely for the duration of remdesivir. Vaccine status/month: Not vaccinated; signs and symptoms: Since 08/09; tested positive for Covid: 08/13 Admitting pro-Jessee: 0.38, f/u procal 08/24 negative Admitting imaging: CTA chest suggestive of viral pneumonia, no evidence of PE. Encourage every hour incentive spirometer/flutter valve/self proning as able Tessalon Perles and Mucinex for cough BNP: 53; strict I's and O's; as needed IV Lasix; monitor BMP. Admitting echo: EF 60 to 65% with normal LV wall motion and LV function. Monitor LFT daily when on remdesivir; sliding scale and glycemic pharmacy if needed when on steroid. Continue with dexamethasone 08/21 and remdesivir 08/21 -closely monitor LFT Clinically a little better but still requiring high flow oxygen at 40 L with 35% FiO2 to maintain saturation Has a total of negative balance about 6000 mL and will not give any more Lasix Has been feeling a little better and he still requires 7 L of oxygen to maintain saturation His LFTs have been normalized #. Diarrhea #. Electrolyte abnormalities -monitor as needed and replete as appropriate. 08/21 C. diff negative ( recent antibiotic as OP) Patient reports improving diarrheal movements. Likely secondary Covid versus other etiology Continue to monitor. Denies any more diarrhea #. Recurrent syncope Likely secondary to orthostasis secondary to clinical dehydration versus hypoxic episodes from Covid Continue telemetry, admitting echo donesee above; Ortho vitals negative on 08/21. Monitor electrolytes. Continue telemetry We will get PT and OT evaluation when appropriate. DVT prophylaxis per Lovenox subcu Full code Admission and Anticipated Discharge Date Admission Date: August 21, 2021 Subjective 08/25/2021 The patient was seen and examined in telemetry unit and in the Covid room He has been feeling a little better but still requiring about 40 L of oxygen at 35% to maintain saturation Has cough without any pain 08/26/2021 The patient was seen and examined in telemetry unit and in the Covid room He has been feeling better but he still requires up to 7 L of oxygen to maintain saturation Ongoing cough and some lower lateral chest wall pain Remains weak and lethargic Review of Systems Review of Systems: All systems reviewed and are unremarkable except as noted below Respiratory: Has shortness of breath and cough Physical Exam Physical Exam: Lying in bed comfortably Constitutional: + ill appearing and average body habitus Eyes: PERRL, conjunctivae normal, anicteric sclerae ENMT: external ear and nose normal, oropharynx normal Respiratory: + respiratory distress (Mild to moderate respiratory distress at rest) Auscultation: + diminished lung sounds and + crackles (At the bases) Cardiovascular: Rate/Rhythm: regular rate and regular rhythm; not tachycardic Heart Sounds: normal S1 and normal S2; no murmur Extremities: no edema Gastrointestinal (Abdomen): Inspection/Auscultation: normal bowel sounds; abdomen not distended Percussion/Palpation: abdomen soft; abdomen nontender Musculoskeletal: No acute arthritis in any joint Neurologic: Alert, awake and oriented x3 no focal sensory and motor deficit appreciated Lymphatic: no cervical or axillary lymphadenopathy Results & Data Results & Data ([facility]) Vital Signs (Past 12 Hours) Vital Signs Temp Pulse Pulse Resp BP Pulse Ox 08/26/21 11:10 37.3 C 66 22 116/71 92 08/26/21 08:06 37.2 C 56 L 24 95/54 L 90 08/26/21 08:00 50 L 08/26/21 05:18 36.9 C 50 L 19 105/67 91 Medications Administered Current Inpatient Medications Acetaminophen (Acetaminophen 325 Mg Tab) 325 mg PO Q6H PRN PRN Reason: Mild Pain Stop: 09/20/21 02:49 Last Admin: 08/23/21 00:22 Dose: 325 mg Documented by: Benzonatate (Benzonatate 100 Mg Capsule) 100 mg PO TID [facility] Stop: 09/20/21 20:59 Last Admin: 08/26/21 13:39 Dose: 100 mg Documented by: Enoxaparin Sodium (Enoxaparin Inj 40 Mg/0.4 Ml Syr) 40 mg SQ QAM [facility] Stop: 09/20/21 08:59 Last Admin: 08/26/21 08:35 Dose: 40 mg Documented by: Guaifenesin (Guaifenesin 600 Mg Tabcr) 1,200 mg PO Q12 [facility] Stop: 09/20/21 20:59 Last Admin: 08/26/21 08:35 Dose: 1,200 mg Documented by: Hydroxyzine HCl (Hydroxyzine Hcl 25 Mg Tab) 25 mg PO HS PRN PRN Reason: Sleep Stop: 09/24/21 16:51 Last Admin: 08/25/21 22:14 Dose: 25 mg Documented by: Promethazine HCl 12.5 mg/ (Sodium Chloride) 50.5 mls @ 202 mls/hr IV Q6H PRN PRN Reason: Nausea And Vomiting Stop: 09/20/21 02:49 Dexamethasone 6 mg/ Syringe 1.5 mls @ 1 mls/min IV DAILY [facility] Stop: 09/21/21 08:59 Last Admin: 08/26/21 08:34 Dose: 1 mls/min Documented by: Ipratropium [place] (Ipratropium [place] Neb Soln 0.02% 2.5 Ml Vial) 0.5 mg INH Q4R PRN PRN Reason: Shortness Of Breath Or Wheezing Stop: 09/20/21 02:49 Last Admin: 08/21/21 03:51 Dose: 0.5 mg Documented by: Levalbuterol HCl (Levalbuterol 1.25mg/0.5ml Neb) 1.25 mg INH Q4R PRN PRN Reason: Shortness Of Breath Or Wheezing Stop: 09/20/21 02:49 Last Admin: 08/21/21 03:50 Dose: 1.25 mg Documented by:
[2021-08-26] MEDS: hydrOXYzine HCl 25 MG TAB PO PRN (22:04)
[2021-08-27 07:39] LABS: Albumin Level 2.3 gm/dl (3.4-5.0); BUN Creatinine Ratio 30.4 (10-20); Calcium 8.4 mg/dl (8.5-10.1); Est GFR (Non-African American) 112.2 ml/min; Potassium 4.3 mmol/L (3.5-5.1)
[2021-08-27 07:41] LABS: Albumin Globulin Ratio 0.6 (0.9-2); Bilirubin,Total 1.1 mg/dl (0.2-1); Total Protein 6.3 gm/dl (6.4-8.2)
[2021-08-27] MEDS: dexAMETHasone 6 MG in SYRINGE 0 ML IV SCH (08:29)
[2021-08-27] MEDS: guaiFENesin 600 MG TABCR PO SCH ×2 (08:29→20:14)
[2021-08-27] MEDS: ENOXAPARIN INJ 40 MG/0.4 ML SYR SQ SCH (08:30)
[2021-08-27] MEDS: BENZONATATE 100 MG CAPSULE PO SCH ×3 (08:37→20:19)
--- NOTE | 2021-08-27 11:03 | XRay Report ---
XR chest 1V portable CLINICAL HISTORY: Covid pneumonia TECHNIQUE: Single frontal radiograph of the chest was obtained. Comparison: Comparison is made to chest one view 08/21/2021 FINDINGS: No lines and tubes are seen. The cardiomediastinal silhouette is normal. Multifocal airspace opacitie s are slightly more pronounced than the prior exam. No evidence of pleural effusion or pneumothorax. IMPRESSION: Multifocal airspace opacities likely representing atelectasis and/or pneumonia, increased from prior exam. ACT 112: Negative or not required by law. Electronically signed by: Deric Winters M.D. 08/27/2021 11:02 AM
[2021-08-27] MEDS ORDERED: POTASSIUM CHLORIDE CRTAB 20 MEQ TABCR PO STA (12:04)
[2021-08-27] MEDS ORDERED: FUROSEMIDE 40 MG/4 ML VIAL IV ONE (12:04)
--- NOTE | 2021-08-27 12:04 | Hospitalist Progress Note ---
Date of Service August 27, 2021 Assessment & Plan (1) Acute hypoxemic respiratory failure: (2) 2019 novel coronavirus-infected pneumonia (NCIP): Plan: #. COVID pneumonia #. Acute hypoxic respiratory failure-secondary to above #. Slightly abnormal LFT-continue to monitor very closely for the duration of remdesivir. Vaccine status/month: Not vaccinated; signs and symptoms: Since 08/09; tested positive for Covid: 08/13 Admitting pro-Jessee: 0.38, f/u procal 08/24 negative Admitting imaging: CTA chest suggestive of viral pneumonia, no evidence of PE. Encourage every hour incentive spirometer/flutter valve/self proning as able Tessalon Perles and Mucinex for cough BNP: 53; strict I's and O's; as needed IV Lasix; monitor BMP. Admitting echo: EF 60 to 65% with normal LV wall motion and LV function. Monitor LFT daily when on remdesivir; sliding scale and glycemic pharmacy if needed when on steroid. Continue with dexamethasone 08/21 and remdesivir 08/21 -closely monitor LFT Clinically a little better but still requiring high flow oxygen at 40 L with 35% FiO2 to maintain saturation Has a total of negative balance about 6000 mL and will not give any more Lasix Has been feeling a little better and he still requires 7 L of oxygen to maintain saturation His LFTs have been normalized Clinically much better but the chest x-ray shows progressive disease with multifocal airspace opacities We will give another dose of intravenous Lasix today and continue current management #. Diarrhea #. Electrolyte abnormalities -monitor as needed and replete as appropriate. 08/21 C. diff negative ( recent antibiotic as OP) Patient reports improving diarrheal movements. Likely secondary Covid versus other etiology Continue to monitor. Denies any more diarrhea #. Recurrent syncope Likely secondary to orthostasis secondary to clinical dehydration versus hypoxic episodes from Covid Continue telemetry, admitting echo donesee above; Ortho vitals negative on 08/21. Monitor electrolytes. Continue telemetry We will get PT and OT evaluation when appropriate. DVT prophylaxis per Lovenox subcu Full code Admission and Anticipated Discharge Date Admission Date: August 21, 2021 Subjective 08/25/2021 The patient was seen and examined in telemetry unit and in the Covid room He has been feeling a little better but still requiring about 40 L of oxygen at 35% to maintain saturation Has cough without any pain 08/26/2021 The patient was seen and examined in telemetry unit and in the Covid room He has been feeling better but he still requires up to 7 L of oxygen to maintain saturation Ongoing cough and some lower lateral chest wall pain Remains weak and lethargic 08/27/2021 The patient was seen and examined in telemetry unit and in the Covid room He has been feeling much better with decreasing cough and shortness of breath even though the x-ray is showing otherwise Denies any fever and or chills, any abdominal pain nausea and or vomiting Review of Systems Review of Systems: All systems reviewed and are unremarkable except as noted below Respiratory: Has minimal shortness of breathing and cough Physical Exam Physical Exam: Lying in bed comfortably Constitutional: average body habitus; not ill appearing Eyes: PERRL, conjunctivae normal, anicteric sclerae ENMT: external ear and nose normal, oropharynx normal Respiratory: + respiratory distress (Mild to moderate respiratory distress at rest) Auscultation: + diminished lung sounds and + crackles (At the bases) Cardiovascular: Rate/Rhythm: regular rate and regular rhythm; not tachycardic Heart Sounds: normal S1 and normal S2; no murmur Extremities: no edema Gastrointestinal (Abdomen): Inspection/Auscultation: normal bowel sounds; abdomen not distended Percussion/Palpation: abdomen soft; abdomen nontender Musculoskeletal: No acute arthritis in any joint Neurologic: Alert awake and oriented x3. no focal sensory or motor deficit appreciated Lymphatic: no cervical or axillary lymphadenopathy Results & Data Results & Data ([facility]) Vital Signs (Past 12 Hours) Vital Signs Temp Pulse Pulse Resp BP BP Pulse Ox 08/27/21 11:29 58 L 20 89 L 08/27/21 10:00 53 L 08/27/21 08:25 36.3 C L 93 H 74 17 107/69 89 L 08/27/21 06:29 49 L 22 96 08/27/21 04:02 36.6 C 56 L 18 106/68 94 08/27/21 02:39 49 L 20 92 Laboratory Results [facility] 08/27/21 05:49 Sodium 139 Potassium 4.3 Chloride 106 Carbon Dioxide 27 BUN 23 H Creatinine 0.74 Glucose 91 Calcium 8.4 L Liver Function 08/27/21 Range/Units 05:49 Total Bilirubin 1.1 H (0.2-1) mg/dl AST 52 H (15-37) U/L ALT 58 (12-78) Alkaline Phosphatase 65 (45-117) U/L Albumin 2.3 L (3.4-5.0) gm/dl Medications Administered Current Inpatient Medications Acetaminophen (Acetaminophen 325 Mg Tab) 325 mg PO Q6H PRN PRN Reason: Mild Pain Stop: 09/20/21 02:49 Last Admin: 08/23/21 00:22 Dose: 325 mg Documented by: Benzonatate (Benzonatate 100 Mg Capsule) 100 mg PO TID REPLACED BY [facility] Stop: 09/20/21 20:59 Last Admin: 08/27/21 08:37 Dose: 100 mg Documented by: Enoxaparin Sodium (Enoxaparin Inj 40 Mg/0.4 Ml Syr) 40 mg SQ QAM REPLACED BY [facility] Stop: 09/20/21 08:59 Last Admin: 08/27/21 08:30 Dose: 40 mg Documented by: Guaifenesin (Guaifenesin 600 Mg Tabcr) 1,200 mg PO Q12 REPLACED BY [facility] Stop: 09/20/21 20:59 Last Admin: 08/27/21 08:29 Dose: 1,200 mg Documented by: Hydroxyzine HCl (Hydroxyzine Hcl 25 Mg Tab) 25 mg PO HS PRN PRN Reason: Sleep Stop: 09/24/21 16:51 Last Admin: 08/26/21 22:04 Dose: 25 mg Documented by: Promethazine HCl 12.5 mg/ (Sodium Chloride) 50.5 mls @ 202 mls/hr IV Q6H PRN PRN Reason: Nausea And Vomiting Stop: 09/20/21 02:49 Dexamethasone 6 mg/ Syringe 1.5 mls @ 1 mls/min IV DAILY REPLACED BY [facility] Stop: 09/21/21 08:59 Last Admin: 08/27/21 08:29 Dose: 1 mls/min Documented by: Ipratropium [place] (Ipratropium [place] Neb Soln 0.02% 2.5 Ml Vial) 0.5 mg INH Q4R PRN PRN Reason: Shortness Of Breath Or Wheezing Stop: 09/20/21 02:49 Last Admin: 08/21/21 03:51 Dose: 0.5 mg Documented by: Levalbuterol HCl (Levalbuterol 1.25mg/0.5ml Neb) 1.25 mg INH Q4R PRN PRN Reason: Shortness Of Breath Or Wheezing Stop: 09/20/21 02:49 Last Admin: 08/21/21 03:50 Dose: 1.25 mg Documented by:
[2021-08-27] MEDS: hydrOXYzine HCl 25 MG TAB PO PRN (22:07)
[2021-08-28] MEDS: guaiFENesin 600 MG TABCR PO SCH ×2 (08:20→23:01)
[2021-08-28] MEDS: ENOXAPARIN INJ 40 MG/0.4 ML SYR SQ SCH (08:20)
[2021-08-28] MEDS: dexAMETHasone 6 MG in SYRINGE 0 ML IV SCH (08:21)
[2021-08-28] MEDS: BENZONATATE 100 MG CAPSULE PO SCH ×3 (08:22→23:02)
[2021-08-28 08:29] LABS: BUN Creatinine Ratio 25.7 (10-20); Calcium 8.3 mg/dl (8.5-10.1); Creatinine Clr Calc Pharmacy 134.9 ml/min; Est GFR (African American) 126.6 ml/min; Est GFR (Non-African American) 109.2 ml/min; Magnesium 2.6 mg/dl (1.8-2.4)
[2021-08-28 08:31] LABS: Potassium 4.8 mmol/L (3.5-5.1)
--- NOTE | 2021-08-28 14:48 | Hospitalist Progress Note ---
Date of Service August 28, 2021 Assessment & Plan (1) Acute hypoxemic respiratory failure: (2) 2019 novel coronavirus-infected pneumonia (NCIP): Plan: #. COVID pneumonia #. Acute hypoxic respiratory failure-secondary to above #. Slightly abnormal LFT-continue to monitor very closely for the duration of remdesivir. Vaccine status/month: Not vaccinated; signs and symptoms: Since 08/09; tested positive for Covid: 08/13 Admitting pro-Jessee: 0.38, f/u procal 08/24 negative Admitting imaging: CTA chest suggestive of viral pneumonia, no evidence of PE. Encourage every hour incentive spirometer/flutter valve/self proning as able Tessalon Perles and Mucinex for cough BNP: 53; strict I's and O's; as needed IV Lasix; monitor BMP. Admitting echo: EF 60 to 65% with normal LV wall motion and LV function. Monitor LFT daily when on remdesivir; sliding scale and glycemic pharmacy if needed when on steroid. Continue with dexamethasone 08/21 and remdesivir 08/21 -closely monitor LFT Clinically a little better but still requiring high flow oxygen at 40 L with 35% FiO2 to maintain saturation Has a total of negative balance about 6000 mL and will not give any more Lasix Has been feeling a little better and he still requires 7 L of oxygen to maintain saturation His LFTs have been normalized Clinically much better but the chest x-ray shows progressive disease with multifocal airspace opacities We will give another dose of intravenous Lasix today and continue current management Denies any cough and/or shortness of breath at rest and he is down to 8 L/min Has a negative balance of 10,000mls since admission and will not give any more Lasix #. Diarrhea #. Electrolyte abnormalities -monitor as needed and replete as appropriate. 08/21 C. diff negative ( recent antibiotic as OP) Patient reports improving diarrheal movements. Likely secondary Covid versus other etiology Continue to monitor. Denies any more diarrhea #. Recurrent syncope Likely secondary to orthostasis secondary to clinical dehydration versus hypoxic episodes from Covid Continue telemetry, admitting echo donesee above; Ortho vitals negative on . Monitor electrolytes. Continue telemetry We will get PT and OT evaluation when appropriate. DVT prophylaxis per Lovenox subcu Full code Likely to have a 2 step O2 saturation test tomorrow before discharge Admission and Anticipated Discharge Date Admission Date: August 21, 2021 Subjective 08/25/2021 The patient was seen and examined in telemetry unit and in the Covid room He has been feeling a little better but still requiring about 40 L of oxygen at 35% to maintain saturation Has cough without any pain 08/26/2021 The patient was seen and examined in telemetry unit and in the Covid room He has been feeling better but he still requires up to 7 L of oxygen to maintain saturation Ongoing cough and some lower lateral chest wall pain Remains weak and lethargic 08/27/2021 The patient was seen and examined in telemetry unit and in the Covid room He has been feeling much better with decreasing cough and shortness of breath even though the x-ray is showing otherwise Denies any fever and or chills, any abdominal pain nausea and or vomiting 08/28/2021 The patient was seen and examined in telemetry unit and in the Covid room He feels a lot better and has been requiring 8 L of oxygen per minute to maintain saturation He has been ambulating in the room without any more shortness of breath Review of Systems Review of Systems: All systems reviewed and are unremarkable except as noted below Respiratory: Has minimal shortness of breathing and cough Physical Exam Physical Exam: Lying in bed comfortably Constitutional: average body habitus; not ill appearing Eyes: PERRL, conjunctivae normal, anicteric sclerae ENMT: external ear and nose normal, oropharynx normal Respiratory: + respiratory distress (Mild to moderate respiratory distress at rest) Auscultation: + diminished lung sounds and + crackles (At the bases) Cardiovascular: Rate/Rhythm: regular rate and regular rhythm; not tachycardic Heart Sounds: normal S1 and normal S2; no murmur Extremities: no edema Gastrointestinal (Abdomen): Inspection/Auscultation: normal bowel sounds; abdomen not distended Percussion/Palpation: abdomen soft; abdomen nontender Musculoskeletal: No acute arthritis in any joint Neurologic: Alert, awake and oriented x3. No focal sensory or motor deficit appreciated Lymphatic: no cervical or axillary lymphadenopathy Results & Data Results & Data ([facility]) Vital Signs (Past 12 Hours) Vital Signs Temp Pulse Pulse Resp BP Pulse Ox 08/28/21 14:42 90 08/28/21 13:46 95 08/28/21 11:32 37.0 C 68 18 116/68 93 08/28/21 11:07 66 20 94 08/28/21 09:40 46 L 08/28/21 07:32 36.7 C 60 16 95/50 L 93 08/28/21 07:23 54 L 22 96 08/28/21 04:57 36.7 C 46 L 18 105/55 L 95 Laboratory Results [facility] 08/28/21 06:59 Sodium 137 Potassium 4.8 Chloride 105 Carbon Dioxide 28 BUN 20 H Creatinine 0.79 Glucose 93 Calcium 8.3 L
[2021-08-28] MEDS: hydrOXYzine HCl 25 MG TAB PO PRN (23:02)
[2021-08-29] MEDS: guaiFENesin 600 MG TABCR PO SCH ×2 (08:43→20:07)
[2021-08-29] MEDS: ENOXAPARIN INJ 40 MG/0.4 ML SYR SQ SCH (08:43)
[2021-08-29] MEDS: dexAMETHasone 6 MG in SYRINGE 0 ML IV SCH (08:43)
[2021-08-29] MEDS: BENZONATATE 100 MG CAPSULE PO SCH ×3 (08:49→20:14)
--- NOTE | 2021-08-29 14:21 | Hospitalist Progress Note ---
Date of Service August 29, 2021 Assessment & Plan (1) Acute hypoxemic respiratory failure: (2) 2019 novel coronavirus-infected pneumonia (NCIP): Plan: #. COVID pneumonia #. Acute hypoxic respiratory failure-secondary to above #. Slightly abnormal LFT-continue to monitor very closely for the duration of remdesivir. Vaccine status/month: Not vaccinated; signs and symptoms: Since 08/09; tested positive for Covid: 08/13 Admitting pro-Jessee: 0.38, f/u procal 08/24 negative Admitting imaging: CTA chest suggestive of viral pneumonia, no evidence of PE. Encourage every hour incentive spirometer/flutter valve/self proning as able Tessalon Perles and Mucinex for cough BNP: 53; strict I's and O's; as needed IV Lasix; monitor BMP. Admitting echo: EF 60 to 65% with normal LV wall motion and LV function. Monitor LFT daily when on remdesivir; sliding scale and glycemic pharmacy if needed when on steroid. Continue with dexamethasone 08/21 and remdesivir 08/21 -closely monitor LFT Clinically a little better but still requiring high flow oxygen at 40 L with 35% FiO2 to maintain saturation Has a total of negative balance about 6000 mL and will not give any more Lasix Has been feeling a little better and he still requires 7 L of oxygen to maintain saturation His LFTs have been normalized Clinically much better but the chest x-ray shows progressive disease with multifocal airspace opacities We will give another dose of intravenous Lasix today and continue current management Denies any cough and/or shortness of breath at rest and he is down to 8 L/min Has a negative balance of 10,000mls since admission and will not give any more Lasix Has been much better today and will get PT evaluation He has been requiring 6 L of oxygen to maintain saturation and hopefully will be able to get 2 step O2 saturation tomorrow for possible discharge #. Diarrhea #. Electrolyte abnormalities -monitor as needed and replete as appropriate. 08/21 C. diff negative ( recent antibiotic as OP) Patient reports improving diarrheal movements. Likely secondary Covid versus other etiology Continue to monitor. Denies any more diarrhea #. Recurrent syncope Likely secondary to orthostasis secondary to clinical dehydration versus hypoxic episodes from Covid Continue telemetry, admitting echo donesee above; Ortho vitals negative on . Monitor electrolytes. Continue telemetry We will get PT and OT evaluation when appropriate. DVT prophylaxis per Lovenox subcu Full code Likely to have a 2 step O2 saturation test tomorrow before discharge Admission and Anticipated Discharge Date Admission Date: August 21, 2021 Subjective 08/25/2021 The patient was seen and examined in telemetry unit and in the Covid room He has been feeling a little better but still requiring about 40 L of oxygen at 35% to maintain saturation Has cough without any pain 08/26/2021 The patient was seen and examined in telemetry unit and in the Covid room He has been feeling better but he still requires up to 7 L of oxygen to maintain saturation Ongoing cough and some lower lateral chest wall pain Remains weak and lethargic 08/27/2021 The patient was seen and examined in telemetry unit and in the Covid room He has been feeling much better with decreasing cough and shortness of breath even though the x-ray is showing otherwise Denies any fever and or chills, any abdominal pain nausea and or vomiting 08/28/2021 The patient was seen and examined in telemetry unit and in the Covid room He feels a lot better and has been requiring 8 L of oxygen per minute to maintain saturation He has been ambulating in the room without any more shortness of breath 08/29/2021 The patient was seen and examined in telemetry unit and in the Covid room He has been feeling much better and oxygen requirements has gone down to 6 L/min [place] has been taken out and he was advised to walk around more in room with assistance Review of Systems 2 Review of Systems: All systems reviewed and are unremarkable except as noted below Respiratory: Has minimal shortness of breathing and cough Physical Exam Physical Exam: Lying in bed comfortably Constitutional: average body habitus; not ill appearing Eyes: PERRL, conjunctivae normal, anicteric sclerae ENMT: external ear and nose normal, oropharynx normal Respiratory: + respiratory distress (Mild to moderate respiratory distress at rest) Auscultation: + diminished lung sounds and + crackles (At the bases) Cardiovascular: Rate/Rhythm: regular rate and regular rhythm; not tachycardic Heart Sounds: normal S1 and normal S2; no murmur Extremities: no edema Gastrointestinal (Abdomen): Inspection/Auscultation: normal bowel sounds; abdomen not distended Percussion/Palpation: abdomen soft; abdomen nontender Musculoskeletal: No acute arthritis in any joint Neurologic: Alert, awake and oriented x3. No focal sensory and motor deficit appreciated Lymphatic: no cervical or axillary lymphadenopathy Results & Data Results & Data ([facility]) Vital Signs (Past 12 Hours) Vital Signs Temp Pulse Pulse Resp BP BP Pulse Ox 08/29/21 11:10 36.8 C 83 20 121/71 91 08/29/21 07:55 63 08/29/21 07:05 36.5 C 58 L 20 102/62 93 08/29/21 03:15 36.5 C 51 L 20 122/67 95 Medications Administered Current Inpatient Medications Acetaminophen (Acetaminophen 325 Mg Tab) 325 mg PO Q6H PRN PRN Reason: Mild Pain Stop: 09/20/21 02:49 Last Admin: 08/23/21 00:22 Dose: 325 mg Documented by: Benzonatate (Benzonatate 100 Mg Capsule) 100 mg PO TID [facility] Stop: 09/20/21 20:59 Last Admin: 08/29/21 13:48 Dose: 100 mg Documented by: Enoxaparin Sodium (Enoxaparin Inj 40 Mg/0.4 Ml Syr) 40 mg SQ QAM [facility] Stop: 09/20/21 08:59 Last Admin: 08/29/21 08:43 Dose: 40 mg Documented by: Guaifenesin (Guaifenesin 600 Mg Tabcr) 1,200 mg PO Q12 [facility] Stop: 09/20/21 20:59 Last Admin: 08/29/21 08:43 Dose: 1,200 mg Documented by: Hydroxyzine HCl (Hydroxyzine Hcl 25 Mg Tab) 25 mg PO HS PRN PRN Reason: Sleep Stop: 09/24/21 16:51 Last Admin: 08/28/21 23:02 Dose: 25 mg Documented by: Promethazine HCl 12.5 mg/ (Sodium Chloride) 50.5 mls @ 202 mls/hr IV Q6H PRN PRN Reason: Nausea And Vomiting Stop: 09/20/21 02:49 Dexamethasone 6 mg/ Syringe 1.5 mls @ 1 mls/min IV DAILY [facility] Stop: 09/21/21 08:59 Last Admin: 08/29/21 08:43 Dose: 1 mls/min Documented by: Ipratropium [place] (Ipratropium [place] Neb Soln 0.02% 2.5 Ml Vial) 0.5 mg INH Q4R PRN PRN Reason: Shortness Of Breath Or Wheezing Stop: 09/20/21 02:49 Last Admin: 08/21/21 03:51 Dose: 0.5 mg Documented by: Levalbuterol HCl (Levalbuterol 1.25mg/0.5ml Neb) 1.25 mg INH Q4R PRN PRN Reason: Shortness Of Breath Or Wheezing Stop: 09/20/21 02:49 Last Admin: 08/21/21 03:50 Dose: 1.25 mg Documented by:
[2021-08-29] MEDS: hydrOXYzine HCl 25 MG TAB PO PRN (21:55)
[2021-08-30] MEDS: ENOXAPARIN INJ 40 MG/0.4 ML SYR SQ SCH (08:24)
[2021-08-30] MEDS: dexAMETHasone 6 MG in SYRINGE 0 ML IV SCH (08:24)
[2021-08-30] MEDS: guaiFENesin 600 MG TABCR PO SCH (08:24)
[2021-08-30] MEDS: BENZONATATE 100 MG CAPSULE PO SCH ×2 (08:25→14:20)
--- NOTE | 2021-08-30 12:35 | Hospitalist Progress Note ---
Date of Service August 30, 2021 Assessment & Plan (1) Acute hypoxemic respiratory failure: (2) 2019 novel coronavirus-infected pneumonia (NCIP): Plan: #. COVID pneumonia #. Acute hypoxic respiratory failure-secondary to above #. Slightly abnormal LFT-continue to monitor very closely for the duration of remdesivir. Vaccine status/month: Not vaccinated; signs and symptoms: Since 08/09; tested positive for Covid: 08/13 Admitting pro-Jessee: 0.38, f/u procal 08/24 negative Admitting imaging: CTA chest suggestive of viral pneumonia, no evidence of PE. Encourage every hour incentive spirometer/flutter valve/self proning as able Tessalon Perles and Mucinex for cough BNP: 53; strict I's and O's; as needed IV Lasix; monitor BMP. Admitting echo: EF 60 to 65% with normal LV wall motion and LV function. Monitor LFT daily when on remdesivir; sliding scale and glycemic pharmacy if needed when on steroid. Continue with dexamethasone 08/21 and remdesivir 08/21 -closely monitor LFT Clinically a little better but still requiring high flow oxygen at 40 L with 35% FiO2 to maintain saturation Has a total of negative balance about 6000 mL and will not give any more Lasix Has been feeling a little better and he still requires 7 L of oxygen to maintain saturation His LFTs have been normalized Clinically much better but the chest x-ray shows progressive disease with multifocal airspace opacities We will give another dose of intravenous Lasix today and continue current management Denies any cough and/or shortness of breath at rest and he is down to 8 L/min Has a negative balance of 10,000mls since admission and will not give any more Lasix Has been much better today and will get PT evaluation He has been requiring 6 L of oxygen to maintain saturation and hopefully will be able to get 2 step O2 saturation tomorrow for possible discharge He has been feeling much better and has had physical therapy evaluation He has 2 step O2 saturation test and he will require 4 L of oxygen with ambulation but nothing at rest He wants to go home today and he will be discharged home this afternoon #. Diarrhea #. Electrolyte abnormalities -monitor as needed and replete as appropriate. 08/21 C. diff negative ( recent antibiotic as OP) Patient reports improving diarrheal movements. Likely secondary Covid versus other etiology Continue to monitor. Denies any more diarrhea #. Recurrent syncope Likely secondary to orthostasis secondary to clinical dehydration versus hypoxic episodes from Covid Continue telemetry, admitting echo donesee above; Ortho vitals negative on 08/21. Monitor electrolytes. Continue telemetry We will get PT and OT evaluation when appropriate. Did not have any more episode of syncope or presyncope or arrhythmia DVT prophylaxis per Lovenox subcu Full code Likely to have a 2 step O2 saturation test tomorrow before discharge Has had to do steps O2 saturation test and he will require 4 L oxygen to maintain saturation with activity Admission and Anticipated Discharge Date Admission Date: August 21, 2021 Subjective 08/25/2021 The patient was seen and examined in telemetry unit and in the Covid room He has been feeling a little better but still requiring about 40 L of oxygen at 35% to maintain saturation Has cough without any pain 08/26/2021 The patient was seen and examined in telemetry unit and in the Covid room He has been feeling better but he still requires up to 7 L of oxygen to maintain saturation Ongoing cough and some lower lateral chest wall pain Remains weak and lethargic 08/27/2021 The patient was seen and examined in telemetry unit and in the Covid room He has been feeling much better with decreasing cough and shortness of breath even though the x-ray is showing otherwise Denies any fever and or chills, any abdominal pain nausea and or vomiting 08/28/2021 The patient was seen and examined in telemetry unit and in the Covid room He feels a lot better and has been requiring 8 L of oxygen per minute to maintain saturation He has been ambulating in the room without any more shortness of breath 08/29/2021 The patient was seen and examined in telemetry unit and in the Covid room He has been feeling much better and oxygen requirements has gone down to 6 L/min [place] has been taken out and he was advised to walk around more in room with assistance 08/30/2021 The patient was seen and examined in telemetry unit in the Covid room He has been feeling much better today and has had physical therapy He does have cough but no shortness of breath at rest He was to go home today Review of Systems Review of Systems: All systems reviewed and are unremarkable except as noted below Respiratory: Has minimal shortness of breathing and cough Physical Exam Physical Exam: Sitting on a chair with minimal distress due to shortness of breath and cough Constitutional: average body habitus; not ill appearing Eyes: PERRL, conjunctivae normal, anicteric sclerae ENMT: external ear and nose normal, oropharynx normal Respiratory: + respiratory distress (Mild to moderate respiratory distress at rest) Auscultation: + diminished lung sounds and + crackles (At the bases) Cardiovascular: Rate/Rhythm: regular rate and regular rhythm; not tachycardic Heart Sounds: normal S1 and normal S2; no murmur Extremities: no edema Gastrointestinal (Abdomen): Inspection/Auscultation: normal bowel sounds; abdomen not distended Percussion/Palpation: abdomen soft; abdomen nontender Musculoskeletal: No acute arthritis in any joint Neurologic: Alert, awake and oriented x3. No focal neuro deficit Lymphatic: no cervical or axillary lymphadenopathy Results & Data Results & Data ([facility]) Vital Signs (Past 12 Hours) Vital Signs Temp Pulse Pulse Pulse Pulse Pulse Pulse 08/30/21 11:48 08/30/21 11:38 36.6 C 90 08/30/21 08:44 104 H 100 H 104 H 103 H 100 H 08/30/21 07:44 37.0 C 76 08/30/21 03:00 08/30/21 02:56 36.8 C 53 L Pulse Resp Resp Resp Resp Resp Resp 08/30/21 11:48 08/30/21 11:38 22 08/30/21 08:44 93 H 22 20 20 22 24 08/30/21 07:44 23 08/30/21 03:00 08/30/21 02:56 13 Resp BP Pulse Ox Pulse Ox Pulse Ox Pulse Ox Pulse Ox 08/30/21 11:48 08/30/21 11:38 148/90 H 93 08/30/21 08:44 16 86 L 85 L 91 85 L 08/30/21 07:44 117/74 90 08/30/21 03:00 94 08/30/21 02:56 130/85 94 Pulse Ox Pulse Ox Pulse Ox Pulse Ox Pulse Ox 08/30/21 11:48 92 86 L 85 L 08/30/21 11:38 08/30/21 08:44 90 90 08/30/21 07:44 08/30/21 03:00 08/30/21 02:56 Medications Administered Current Inpatient Medications Acetaminophen (Acetaminophen 325 Mg Tab) 325 mg PO Q6H PRN PRN Reason: Mild Pain Stop: 09/20/21 02:49 Last Admin: 08/23/21 00:22 Dose: 325 mg Documented by: Benzonatate (Benzonatate 100 Mg Capsule) 100 mg PO TID [facility] Stop: 09/20/21 20:59 Last Admin: 08/30/21 08:25 Dose: 100 mg Documented by: Enoxaparin Sodium (Enoxaparin Inj 40 Mg/0.4 Ml Syr) 40 mg SQ QAM [facility] Stop: 09/20/21 08:59 Last Admin: 08/30/21 08:24 Dose: 40 mg Documented by: Guaifenesin (Guaifenesin 600 Mg Tabcr) 1,200 mg PO Q12 [facility] Stop: 09/20/21 20:59 Last Admin: 08/30/21 08:24 Dose: 1,200 mg Documented by: Hydroxyzine HCl (Hydroxyzine Hcl 25 Mg Tab) 25 mg PO HS PRN PRN Reason: Sleep Stop: 09/24/21 16:51 Last Admin: 08/29/21 21:55 Dose: 25 mg Documented by: Promethazine HCl 12.5 mg/ (Sodium Chloride) 50.5 mls @ 202 mls/hr IV Q6H PRN PRN Reason: Nausea And Vomiting Stop: 09/20/21 02:49 Dexamethasone 6 mg/ Syringe 1.5 mls @ 1 mls/min IV DAILY [facility] Stop: 09/21/21 08:59 Last Admin: 08/30/21 08:24 Dose: 1 mls/min Documented by: Ipratropium [place] (Ipratropium [place] Neb Soln 0.02% 2.5 Ml Vial) 0.5 mg INH Q4R PRN PRN Reason: Shortness Of Breath Or Wheezing Stop: 09/20/21 02:49 Last Admin: 08/21/21 03:51 Dose: 0.5 mg Documented by: Levalbuterol HCl (Levalbuterol 1.25mg/0.5ml Neb) 1.25 mg INH Q4R PRN PRN Reason: Shortness Of Breath Or Wheezing Stop: 09/20/21 02:49 Last Admin: 08/21/21 03:50 Dose: 1.25 mg Documented by:
--- NOTE | 2021-08-30 17:38 | Discharge Summary ---
Date of Service August 30, 2021 Admission HPI Per Admitting Provider History obtained from patient and records. Medical history significant for recurrent sinusitis. 2 weeks ago, patient noted flulike symptoms low-grade fever mild sore throat and sinus congestion. Possible sick contacts at home. Patient has not received COVID-19 vaccination. Patient seen at the ER last week. COVID-19 test was positive. Chest x-ray was normal. O2 sats greater than 95% at the ER. Patient sent home on Augmentin prescription. Worsening shortness of breath at home, chest pain with dry cough symptoms. Poor appetite. Patient had 3 syncopal events at home preceded by lightheadedness on standing up. No tongue biting/urinary incontinence episodes during syncopal events. Diarrhea without unusual abdominal pain complaints. Patient returned to the ER. O2 sats 80s on room air. Patient given Decadron. 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 Admission Exam Per Admitting Provider Physical Exam: GENERAL: Slightly uncomfortable, pleasant, no respiratory distress SKIN: Normal color, warm HEENT: [place] palpebral conjunctivae, no ptosis, dry buccal mucosa, nasal cannula in place NECK : Supple, no tenderness CHEST : CTA, no tenderness HEART : RRR, no obvious murmurs ABDOMEN: Some distention, nontender EXTREMITIES : No LE swelling/tenderness, no other conspicuous deformities noted NEUROLOGIC : Coherent, no facial asymmetry, no other gross focality Principal Diagnosis Acute respiratory failure with hypoxemia, COVID-19 pneumonia, diarrhea Discharge Exam Constitutional average body habitus; not ill appearing Eyes PERRL, conjunctivae normal, anicteric sclerae ENMT external ear and nose normal, oropharynx normal Respiratory + respiratory distress (Mild to moderate respiratory distress at rest) Auscultation: + diminished lung sounds and + crackles (At the bases) Cardiovascular Rate/Rhythm: regular rate and regular rhythm; not tachycardic Heart Sounds: normal S1 and normal S2; no murmur Extremities: no edema Gastrointestinal (Abdomen) Inspection/Auscultation: normal bowel sounds; abdomen not distended Percussion/Palpation: abdomen soft; abdomen nontender Lymphatic no cervical or axillary lymphadenopathy Discharge Data Allergies Allergy/AdvReac Type Severity Reaction Status Date / Time No Known Drug Allergies Allergy Unknown Unknown Verified 08/21/21 15:00 Consultations 08/20/21 22:17 ED Decision to Admit Stat Ordered Studies 08/20/21 20:06 CT angio chest PE protocol Urgent Hospital Course (1) Acute hypoxemic respiratory failure: (2) 2019 novel coronavirus-infected pneumonia (NCIP): #. COVID pneumonia #. Acute hypoxic respiratory failure-secondary to above #. Slightly abnormal LFT-continue to monitor very closely for the duration of remdesivir. Vaccine status/month: Not vaccinated; signs and symptoms: Since 08/09; tested po sitive for Covid: 08/13 Admitting pro-Jessee: 0.38, f/u procal 08/24 negative Admitting imaging: CTA chest suggestive of viral pneumonia, no evidence of PE. Encourage every hour incentive spirometer/flutter valve/self proning as able Tessalon Perles and Mucinex for cough BNP: 53; strict I's and O's; as needed IV Lasix; monitor BMP. Admitting echo: EF 60 to 65% with normal LV wall motion and LV function. Monitor LFT daily when on remdesivir; sliding scale and glycemic pharmacy if needed when on steroid. Continue with dexamethasone 08/21 and remdesivir 08/21 -closely monitor LFT Clinically a little better but still requiring high flow oxygen at 40 L with 35% FiO2 to maintain saturation Has a total of negative balance about 6000 mL and will not give any more Lasix Has been feeling a little better and he still requires 7 L of oxygen to maintain saturation His LFTs have been normalized Clinically much better but the chest x-ray shows progressive disease with multifocal airspace opacities We will give another dose of intravenous Lasix today and continue current management Denies any cough and/or shortness of breath at rest and he is down to 8 L/min Has a negative balance of 10,000mls since admission and will not give any more Lasix Has been much better today and will get PT evaluation He has been requiring 6 L of oxygen to maintain saturation and hopefully will be able to get 2 step O2 saturation tomorrow for possible discharge He has been feeling much better and has had physical therapy evaluation He has 2 step O2 saturation test and he will require 4 L of oxygen with ambulation but nothing at rest He wants to go home today and he will be discharged home this afternoon #. Diarrhea #. Electrolyte abnormalities -monitor as needed and replete as appropriate. 08/21 C. diff negative ( recent antibiotic as OP) Patient reports improving diarrheal movements. Likely secondary Covid versus other etiology Continue to monitor. Denies any more diarrhea #. Recurrent syncope Likely secondary to orthostasis secondary to clinical dehydration versus hypoxic episodes from Covid Continue telemetry, admitting echo donesee above; Ortho vitals negative on 08/21. Monitor electrolytes. Continue telemetry We will get PT and OT evaluation when appropriate. Did not have any more episode of syncope or presyncope or arrhythmia DVT prophylaxis per Lovenox subcu Full code Likely to have a 2 step O2 saturation test tomorrow before discharge Has had to do steps O2 saturation test and he will require 4 L oxygen to maintain saturation with activity Total Time Total Time Spent Total Time Spent (In Minutes): 35 minutes Discharge Plan Discharge Items Patient Disposition: Home - Self-Care Reason For Visit: RESPIRATORY FAILURE, COVID Discharge Diagnosis: Acute respiratory failure with hypoxemia, COVID-19 pneumonia, diarrhea Condition on Discharge: Fair Activity: Resume your previous activity Activity Comment: Take it easy for the next week or so Non-emergency contact: Primary Care Provider Call non-emergency contact if: you have any medication questions and your symptoms worsen Follow-up/Referrals: Uziel Foley, [Outside Practitioners] - 09/04/21 11:00 am ([facility], appointment scheduled by patient's . ) PCP,NO [Primary Care Provider] - (Please make an appointment with your primary care provider within 7 days) Diet: Lactose Intolerant Addtl Attending Provider Instructions: Please use your oxygen as advised Continue taking cough suppressant Take it easy for the next week or so Maintain home isolation for about 10 more days as per guideline below: Please make an appointment with your primary care physician within 7 to 10 days Home Isolation COVID-19 Instructions The following information about Home Isolation is from the CDC Website: https://www.cdc.gov/coronavirus/2019-ncov/hcp/kvznerrp-umlwdlw-zzycjb.html Stay home except to get medical care People who are mildly ill with COVID-19 are able to isolate at home during their illness. You should restrict activities outside your home, except for getting medical care. Do not go to work, school, or public areas. Avoid using public transportation, ride-sharing, or taxis. Separate yourself from other people and animals in your home People: As much as possible, you should stay in a specific room and away from other people in your home. Also, you should use a separate bathroom, if available. Animals: You should restrict contact with pets and other animals while you are sick with COVID-19, just like you would around other people. Although there have not been reports of pets or other animals becoming sick with COVID-19, it is still recommended that people sick with COVID-19 limit contact with animals until more information is known about the virus. When possible, have another member of your household care for your animals while you are sick. If you are sick with COVID-19, avoid contact with your pet, including petting, snuggling, being kissed or licked, and sharing food. If you must care for your pet or be around animals while you are sick, wash your hands before and after you interact with pets and wear a face mask. Call ahead before visiting your doctor If you have a medical appointment, call the healthcare provider and tell them that you have or may have COVID-19. This will help the healthcare providers office take steps to keep other people from getting infected or exposed. Wear a face mask You should wear a face mask when you are around other people (e.g., sharing a room or vehicle) or pets and before you enter a healthcare providers office. If you are not able to wear a face mask (for example, because it causes trouble breathing), then people who live with you should not stay in the same room with you, or they should wear a face mask if they enter your room. Cover your coughs and sneezes Cover your mouth and nose with a tissue when you cough or sneeze. Throw used tissues in a lined trash can. Immediately wash your hands with soap and water for at least 20 seconds or, if soap and water are not available, clean your hands with an alcohol-based hand torpedo specialist that contains at least 60% alcohol. Clean your hands often Wash your hands often with soap and water for at least 20 seconds, especially after blowing your nose, coughing, or sneezing; going to the bathroom; and be fore eating or preparing food. If soap and water are not readily available, use an alcohol-based hand torpedo specialist with at least 60% alcohol, covering all surfaces of your hands and rubbing them together until they feel dry. Soap and water are the best option if hands are visibly dirty. Avoid touching your eyes, nose, and mouth with unwashed hands. Avoid sharing personal household items You should not share dishes, drinking glasses, cups, eating utensils, towels, or bedding with other people or pets in your home. After using these items, they should be washed thoroughly with soap and water. Clean all high-touch surfaces everyday High touch surfaces include counters, tabletops, doorknobs, bathroom fixtures, toilets, phones, keyboards, tablets, and bedside tables. Also, clean any surfaces that may have blood, stool, or body fluids on them. Use a household cleaning spray or wipe, according to the label instructions. Labels contain instructions for safe and effective use of the cleaning product including precautions you should take when applying the product, such as wearing gloves and making sure you have good ventilation during use of the product. Monitor your symptoms Seek prompt medical attention if your illness is worsening (e.g., difficulty breathing).Beforeseeking care, call your healthcare provider and tell them that you have, or are being evaluated for, COVID-19. Put on a face mask before you enter the facility. These steps will help the healthcare providers office t o keep other people in the office or waiting room from getting infected or exposed. Ask your healthcare provider to call the local or state health department. Persons who are placed under active monitoring or facilitated self- monitoring should follow instructions provided by their local health department or occupational health professionals, as appropriate. When working with your local health department check their available hours. If you have a medical emergency and need to call 911, notify the dispatch personnel that you have, or are being evaluated for COVID-19. If possible, put on a face mask before emergency medical services arrive. Discontinuing home isolation Patients with confirmed COVID-19 should remain under home isolation precautions until the risk of secondary transmission to others is thought to be low. The decision to discontinue home isolation precautions should be made on a [id number] basis, in consultation with healthcare providers and state and local health departments. Pending Studies at Discharge: No Stand-Alone Forms: [facility] Sm[facility] Cess[facility] Medications and DC Order Prescriptions: New guaifenesin [Mucinex] 600 mg Tablet Extended Release 12hr 1,200 mg PO Q12 Qty: 30 RF: 0 dexamethasone 6 mg tablet 6 mg PO DAILY Qty: 3 RF: 0 benzonatate 100 mg capsule 100 mg PO TID Qty: 30 RF: 0 Continued albuterol sulfate 90 mcg/actuation HFA aerosol inhaler 3 inh inhalation Q6H PRN (Reason: Shortness Of Breath) RF: 0 Discontinued amoxicillin-pot clavulanate [Augmentin] 875-125 mg tablet 1 tab PO BID Qty: 20 RF: 0 Discharge Orders: Discharge Order (Routine); Ordered 08/30/21 Ordered By: Jovanny Griffin Admission Data Admit Date/Time: 08/21/21 00:22 Attending Provider: Jovanny Griffin Admit Provider: Yeyo Harvey Primary Care Provider: PCP,NO Other Providers: Yeyo Harvey ; Dea Triplett Other Interventions: Discharge Summary Assessment (RN) Last Done: 08/30/21 13:25
== END 2021-08-30 15:20 | disposition home or self-care (01) | DRG 177 ==
LOC: ED 16:00 → EDINP 08-21 00:22 → SUATTDRO 08-21 00:22 → EDINP 08-21 02:48 → 2W 08-21 13:13 → 2E 08-24 14:51 → 2S 08-28 20:04